=== PATIENT | male | born 1950 | race Caucasian/White ===

== ENCOUNTER 2018-12-09 12:34 | Emergency (ER) | payer OTHER ==
[~2018-12-09] VITALS: Ht 182.9 cm; Wt 70.3 kg
[2018-12-09] MEDS ORDERED: LOSA50 PO (13:30)
[2018-12-09] MEDS ORDERED: CYCL10 PO (15:01)
[2018-12-09] MEDS ORDERED: Ultram50 MG PO (15:01)
== END 2018-12-09 15:17 | disposition home or self-care (01) ==
LOC: ER 12:34
DX: T14.90XA Injury, unspecified, initial encounter (principal); J44.9 Chronic obstructive pulmonary disease, unspecified; Z88.5 Allergy status to narcotic agent; Z87.891 Personal history of nicotine dependence; V49.40XA Driver injured in collision with unspecified motor vehicles in traffic accident, initial encounter
CPT/HCPCS: 72040; 72070; 72100; 99283-25

== ENCOUNTER 2018-12-18 09:36 | Emergency (ER) | payer OTHER ==
[~2018-12-18] VITALS: Ht 182.9 cm; Wt 70.3 kg
[~2018-12-18 09:36] MED LIST: CYCL10 PO; LOSA50 PO; Ultram50 MG PO
[2018-12-18] MEDS ORDERED: IBUP600 PO (11:21)
[2018-12-18] MEDS ORDERED: TRAM50 PO (11:21)
[2018-12-18] MEDS ORDERED: CYCL10 PO (11:21)
== END 2018-12-18 11:36 | disposition home or self-care (01) ==
LOC: ER 09:36
DX: M62.830 Muscle spasm of back (principal); M62.838 Other muscle spasm; Z88.2 Allergy status to sulfonamides; Z87.891 Personal history of nicotine dependence; S32.009D Unspecified fracture of unspecified lumbar vertebra, subsequent encounter for fracture with routine healing; V49.9XXD Car occupant (driver) (passenger) injured in unspecified traffic accident, subsequent encounter
CPT/HCPCS: 99283

== ENCOUNTER 2019-11-17 05:48 | Inpatient (IN) | payer OTHER, MEDICARE ==
[~2019-11-17] VITALS: Ht 182.9 cm; Wt 75.1 kg
[~2019-11-17 05:48] MED LIST changes: +IBUP600 PO; +TRAM50 PO
[2019-11-17 06:25] LABS: BASOPHILS ABSOLUTE AUTO 0.04 K/mm3 (0.00-0.23); BASOPHILS PERCENT AUTO 0 % (0-2); EOSINOPHILS ABSOLUTE AUTO 0.29 K/mm3 (0.00-0.68); EOSINOPHILS PERCENT AUTO 3 % (0-6); Hematocrit 44.7 % (37.0-53.0); Hemoglobin 14.3 g/dL (13.5-17.5); IMMATURE GRAN ABSOLUTE AUTO 0.03 K/mm3 (0.00-0.10); IMMATURE GRAN PERCENT AUTO 0 % (0-1); LYMPHOCYTES ABSOLUTE AUTO 1.52 K/mm3 (0.84-5.20); LYMPHOCYTES PERCENT AUTO 15 % (21-46); MONOCYTES ABSOLUTE AUTO 0.87 K/mm3 (0.16-1.47); MONOCYTES PERCENT AUTO 9 % (4-13); Mean Corpuscular HGB 29.7 pg (26.0-34.0); Mean Corpuscular Volume 93 fL (80-100); Mean Platelet Volume 9.5 fL (9.1-12.4); NEUTROPHILS ABSOLUTE AUTO 7.47 K/mm3 (1.96-9.15); NEUTROPHILS PERCENT AUTO 73 % (41-73); Platelet Count 139 K/mm3 (150-400); RDW Coefficient Variation 13.7 % (11.7-14.2); Red Blood Cell Count 4.81 M/mm3 (4.30-5.90); White Blood Cell Count 10.22 K/mm3 (4.00-11.30)
[2019-11-17 06:46] LABS: Alanine Aminotransfer (ALT/SGP 45 U/L (12-78); Albumin, Blood 3.7 g/dL (3.4-5.0); Albumin/Globulin Ratio 1.1 (0.8-1.8); Alk Phos 110 U/L (50-136); Anion Gap 9 mmol/L (6-16); Aspartate Aminotrans (AST/SGOT 139 U/L (12-37); Bilirubin, Total 0.6 mg/dL (0.1-1.0); Blood Urea Nitrogen 19 mg/dL (8-24); CO2, Blood 21 mmol/L (21-32); Calcium, Blood 8.9 mg/dL (8.5-10.1); Chloride, Blood 111 mmol/L (98-108); Creatinine, Blood 1.12 mg/dL (0.60-1.20); Globulin, Blood 3.3 g/dL (2.2-4.0); Glomerular Filtration Rate >60 (60-); Glucose, Blood 126 mg/dL (70-99); Potassium, Blood 4.1 mmol/L (3.5-5.5); Sodium, Blood 141 mmol/L (136-145)
[2019-11-17 07:13] LABS: International Normalized Ratio 1.03; Prothrombin Time Results 10.9 Sec (9.7-11.5)
--- NOTE | 2019-11-17 11:39 | NUR ---
Echocardiogram completed.
--- NOTE | 2019-11-17 14:07 | NUR ---
SITE TO RIGHT SHOULDER AND RIGHT JAW AREA (WHERE CANCER WAS REMOVED) CLEANED WITH SKINTEGRITY AND DRESSED WITH PLAIN TEGADERM.
[2019-11-17] MEDS ORDERED: ALBU90OI INH (14:09)
[2019-11-17] MEDS ORDERED: Refresh Plus1 EACH BOTHEYES (14:10)
[2019-11-17] MEDS ORDERED: FINA5 PO (14:11)
[2019-11-17] MEDS ORDERED: LOSARTAN POTAS100 MG PO (14:12)
[2019-11-17] MEDS ORDERED: PRAHYD1AE PR (14:12)
[2019-11-17] MEDS ORDERED: OMEPRAZOLE20 MG PO (14:13)
[2019-11-17] MEDS ORDERED: TAMS.4ER PO (14:13)
[2019-11-17] MEDS ORDERED: ASMANEX HFA13 GM INH (14:13)
[2019-11-17] MEDS ORDERED: STRIVERDI RESPIM4 GM INH (14:13)
--- NOTE | 2019-11-17 19:08 | NUR ---
REPORT TO SONY, RN TO ASSUME CARE
--- NOTE | 2019-11-17 19:09 | NUR ---
ARRIVAL TO ICU/SUMMARY PT ARRIVED TO ICU THIS MORNING POST CATHETERIZATION. TR BAND TO RIGHT RADIAL SITE. PT ALERT, ORIENTED. BP SLIGHTLY LOW. PT REPORTS SLIGHT DIZZINESS. HR NORMAL SINUS. PT AFEBRILE. 02 SAT'S 90'S ON ROOM AIR. PT DENIES CHEST PAIN. THROUGHOUT SHIFT, PT STATES DIZZINESS HAS RESOLVED. BP IMPROVED. PT ATE BOTH LUNCH AND DINNER INDEPEDENTLY. CALLING APPROPRIATELY FOR NEEDS. PT'S DAUGHTER AT BEDSIDE AND INVOLVED IN CARE. PT AND DAUGHTER EDUCATED EXTENSIVELY ON CARDIAC DIET, STENT PLACEMENT AND RADIAL ACCESS SITE PRECAUTIONS. PT AND FAMILY INVOLVED AND ASKING LOTS OF QUESTIONS. THIS EVENING PT REPORTING 1/10 BACK PAIN THAT HE REPORTS FEELS LIKE INDIGESTION. DISCUSSED ON NURSE ROUNDING WITH OFFGOING NURSE, PATIENT AND PT'S DAUGHTER. PLAN TO CONTINUE TO MONITOR. PT AGREES TO CALL IF PAIN WORSENS OR CHANGES.
--- NOTE | 2019-11-17 22:35 | NUR ---
ASSUME CARE PT ALERT AND ORIENTED. FOLLOWS COMMANDS, USES URINAL IN BED. PT COMPLAINS OF INDIGESTION FEELING SIMILAR TO THE FEELING HE HAD WHEN ADMITTED. PAIN 12/10. SATS ABOVE 92% ON RA. LUNGS DIMINISHED THROUGHOUT. AFEBRILE. TEGADERM ON BACK AND NECK INTACT. RT BAND SITE DRY, COVERED WITH TEGADERM. NO HEMATOMA OR OOZING NOTED. VSS. WILL CONTINUE TO MONITOR.
[2019-11-18 03:52] LABS: BASOPHILS ABSOLUTE AUTO 0.04 K/mm3 (0.00-0.23); BASOPHILS PERCENT AUTO 0 % (0-2); EOSINOPHILS ABSOLUTE AUTO 0.25 K/mm3 (0.00-0.68); EOSINOPHILS PERCENT AUTO 3 % (0-6); Hematocrit 38.5 % (37.0-53.0); Hemoglobin 12.4 g/dL (13.5-17.5); IMMATURE GRAN ABSOLUTE AUTO 0.04 K/mm3 (0.00-0.10); IMMATURE GRAN PERCENT AUTO 0 % (0-1); LYMPHOCYTES ABSOLUTE AUTO 1.42 K/mm3 (0.84-5.20); LYMPHOCYTES PERCENT AUTO 15 % (21-46); MONOCYTES ABSOLUTE AUTO 0.96 K/mm3 (0.16-1.47); MONOCYTES PERCENT AUTO 10 % (4-13); Mean Corpuscular HGB 29.6 pg (26.0-34.0); Mean Corpuscular HGB Conc 32.2 g/dL (31.5-36.5); Mean Corpuscular Volume 92 fL (80-100); Mean Platelet Volume 9.7 fL (9.1-12.4); NEUTROPHILS ABSOLUTE AUTO 6.52 K/mm3 (1.96-9.15); NEUTROPHILS PERCENT AUTO 71 % (41-73); Platelet Count 111 K/mm3 (150-400); RDW Coefficient Variation 13.8 % (11.7-14.2); RDW Standard Deviation 46.8 fL (35.1-46.3); Red Blood Cell Count 4.19 M/mm3 (4.30-5.90); White Blood Cell Count 9.23 K/mm3 (4.00-11.30)
[2019-11-18 04:17] LABS: Alanine Aminotransfer (ALT/SGP 34 U/L (12-78); Alk Phos 85 U/L (50-136); Anion Gap 7 mmol/L (6-16); Aspartate Aminotrans (AST/SGOT 79 U/L (12-37); Bilirubin, Total 0.5 mg/dL (0.1-1.0); Blood Urea Nitrogen 19 mg/dL (8-24); Bun/Creatinine Ratio 19.6 (12.0-20.0); CO2, Blood 21 mmol/L (21-32); Calcium, Blood 8.1 mg/dL (8.5-10.1); Chloride, Blood 114 mmol/L (98-108); Creatinine, Blood 0.97 mg/dL (0.60-1.20); Glomerular Filtration Rate >60 (60-); Glucose, Blood 95 mg/dL (70-99); Sodium, Blood 142 mmol/L (136-145)
--- NOTE | 2019-11-18 06:16 | NUR ---
SHIFT SUMMARY PT ALERT, SLEPT A LITTLE THROUGHOUT NIGHT. SATS ABOVE 92% ON RA. PT COMPLAINED OF 2/10 CHEST PAIN OVERNIGHT AND SOME SOB. ALBUTEROL TREATMENT AND INHALER GIVEN. PT MORE COMFORTABLE AFTER. ADEQUATE URINE OUTPUT. NO OTHER ISSUES. WILL CONTINUE TO MONITOR UNTIL REPORT GIVEN TO DAY SHIFT RN.
--- NOTE | 2019-11-18 11:10 | NUR ---
pT COMPLAINING OF A HEADACHE. NOTHING AVAILABLE. DR. BUCKLEY NOTIFIED AND RECEIVED ORDER FOR TYLENOL, SEE ORDERS.
--- NOTE | 2019-11-18 13:29 | NUR ---
REASSESSMENT: PT HAS NOT HAD ANY CHEST PAIN THIS MORNING. R TR BAND IS C/D/I, SOFT, NO HEMATOMA. LUNGS REMAIN CLEAR, ON RA. SR WITH OCC TO FQ PVCS, SOMETIMES RUNS OF BIGEMINY. PT DENIES ANY SYMPTOMS WITH BIGEMINY. BP STABLE. PT HAS A HEADACHE WHICH IMPROVED WITH TYLENOL BUT HE SAYS THE TYLENOL UPSET HIS STOMACH. PT REQUESTING A HAMBURGER AFTER HE DIDN'T EAT ANY BREAKFAST AND ONLY ATE THE POTATOES FROM HIS LUNCH. FOOD REQUEST PLACED TO SEE IF IT WILL HELP HIS UPSET STOMACH. PLAN IS FOR PT TO DC THIS AFTERNOON. WAITING FOR DC ORDERS.
[2019-11-18] MEDS ORDERED: ASPI81CH PO (14:19)
[2019-11-18] MEDS ORDERED: ATOR40TA PO (14:20)
[2019-11-18] MEDS ORDERED: TICA90TA PO (14:21)
[2019-11-18] MEDS ORDERED: NITR.4SL SL (14:21)
[2019-11-18] MEDS ORDERED: METO50ER PO (14:21)
--- NOTE | 2019-11-18 15:52 | NUR ---
DISCHARGE: PT DISCHARGED AT 1545 VIA WC WITH RN. PT GIVEN DISCHARGE INSTRUCTIONS REGARDING TR BAND SITE CARE, ACTIVITY, DIET, MEDICATIONS AND FOLLOW UP APPTS. DISCHARGE MEDS SENT TO [place] AND [facility] SCRIPT SENT TO [facility] WELL PER DR. BUCKLEY REQUEST SO PT WILL BE ABLE TO GET [facility] BECAUSE OF THEIR FORMULARY. PT EDUCATED ON THIS AND STATED HE WOULD GET THE [facility] FROM [facility]. ALL QUESTIONS WERE ANSWERED. PT'S SMILEY PICKED HIM UP. ALL BELONGINGS SENT HOME WITH PT.
== END 2019-11-18 15:50 | disposition home or self-care (01) | DRG 247 ==
LOC: ER 05:48 → ICUW 07:14
PROVIDERS: Emergency Medicine; ADMIT Internal Medicine Interventional Cardiology
PROC: 027034Z Dilation of Coronary Artery, One Artery with Drug-eluting Intraluminal Device, Percutaneous Approach (ICD-10-PCS; principal; 2019-11-17)
PROC: 4A023N7 Measurement of Cardiac Sampling and Pressure, Left Heart, Percutaneous Approach (ICD-10-PCS; 2019-11-17)
PROC: B2111ZZ Fluoroscopy of Multiple Coronary Arteries using Low Osmolar Contrast (ICD-10-PCS; 2019-11-17)
PROC: B2151ZZ Fluoroscopy of Left Heart using Low Osmolar Contrast (ICD-10-PCS; 2019-11-17)
PROC: B240ZZ3 Ultrasonography of Single Coronary Artery, Intravascular (ICD-10-PCS; 2019-11-17)
DX: I24.0 Acute coronary thrombosis not resulting in myocardial infarction (principal); J44.9 Chronic obstructive pulmonary disease, unspecified; Z87.891 Personal history of nicotine dependence; I95.9 Hypotension, unspecified; I10 Essential (primary) hypertension
CPT/HCPCS: 36415; 71045; 76937; 80053; 83690; 84484; 85025; 85347; 85610; 85730; 92978; 93005; 93010; 93306; 93458; 94640; 94760; 96374; 96375; 99152; 99153; 99285-25; A9270; C1725; C1753; C1769; C1874; C1887; C1894; C9600; J0461; J1200; J1644; J2250; J2270; J2405; J3010; J7030; Q9967

== ENCOUNTER 2019-11-20 22:26 | Emergency (ER) | payer OTHER ==
[~2019-11-20] VITALS: Ht 182.9 cm; Wt 72.6 kg
[~2019-11-20 22:26] MED LIST changes: +ALBU90OI INH; +ASMANEX HFA13 GM INH; +ASPI81CH PO; +ATOR40TA PO; +FINA5 PO; +LOSARTAN POTAS100 MG PO; +METO50ER PO; +NITR.4SL SL; +OMEPRAZOLE20 MG PO; +PRAHYD1AE PR; +Refresh Plus1 EACH BOTHEYES; +STRIVERDI RESPIM4 GM INH; +TAMS.4ER PO; +TICA90TA PO
[2019-11-20 23:12] LABS: BASOPHILS ABSOLUTE AUTO 0.06 K/mm3 (0.00-0.23); BASOPHILS PERCENT AUTO 1 % (0-2); EOSINOPHILS ABSOLUTE AUTO 0.37 K/mm3 (0.00-0.68); EOSINOPHILS PERCENT AUTO 4 % (0-6); Hematocrit 43.4 % (37.0-53.0); Hemoglobin 14.2 g/dL (13.5-17.5); IMMATURE GRAN ABSOLUTE AUTO 0.04 K/mm3 (0.00-0.10); IMMATURE GRAN PERCENT AUTO 0 % (0-1); LYMPHOCYTES PERCENT AUTO 16 % (21-46); MONOCYTES ABSOLUTE AUTO 1.07 K/mm3 (0.16-1.47); MONOCYTES PERCENT AUTO 11 % (4-13); Mean Corpuscular HGB Conc 32.7 g/dL (31.5-36.5); Mean Corpuscular Volume 92 fL (80-100); Mean Platelet Volume 9.5 fL (9.1-12.4); NEUTROPHILS ABSOLUTE AUTO 6.66 K/mm3 (1.96-9.15); NEUTROPHILS PERCENT AUTO 69 % (41-73); Platelet Count 161 K/mm3 (150-400); RDW Coefficient Variation 13.2 % (11.7-14.2); RDW Standard Deviation 45.1 fL (35.1-46.3); Red Blood Cell Count 4.74 M/mm3 (4.30-5.90)
[2019-11-20 23:29] LABS: Alanine Aminotransfer (ALT/SGP 26 U/L (12-78); Albumin, Blood 3.5 g/dL (3.4-5.0); Alk Phos 110 U/L (50-136); Anion Gap 11 mmol/L (6-16); Aspartate Aminotrans (AST/SGOT 26 U/L (12-37); Bilirubin, Total 0.8 mg/dL (0.1-1.0); Blood Urea Nitrogen 22 mg/dL (8-24); CO2, Blood 19 mmol/L (21-32); Calcium, Blood 8.9 mg/dL (8.5-10.1); Chloride, Blood 112 mmol/L (98-108); Creatinine, Blood 1.05 mg/dL (0.60-1.20); Globulin, Blood 3.5 g/dL (2.2-4.0); Glomerular Filtration Rate >60 (60-); Glucose, Blood 100 mg/dL (70-99); Potassium, Blood 3.9 mmol/L (3.5-5.5); Sodium, Blood 142 mmol/L (136-145)
== END 2019-11-21 01:21 | disposition left against medical advice (07) ==
LOC: ER 22:26
PROVIDERS: Emergency Medicine
DX: R07.9 Chest pain, unspecified (principal); I25.2 Old myocardial infarction; I10 Essential (primary) hypertension; J44.9 Chronic obstructive pulmonary disease, unspecified; Z88.5 Allergy status to narcotic agent; Z95.5 Presence of coronary angioplasty implant and graft; Z79.899 Other long term (current) drug therapy; Z98.2 Presence of cerebrospinal fluid drainage device; Z79.51 Long term (current) use of inhaled steroids; Z87.891 Personal history of nicotine dependence
CPT/HCPCS: 36415; 71046; 80053; 83880; 84484; 85025; 93005; 93010; 99285-25

== ENCOUNTER 2019-12-01 18:55 | Emergency (ER) | payer OTHER ==
[~2019-12-01] VITALS: Ht 182.9 cm; Wt 72.6 kg
== END 2019-12-01 21:35 | disposition home or self-care (01) ==
LOC: ER 18:55
DX: M79.89 Other specified soft tissue disorders (principal); J44.9 Chronic obstructive pulmonary disease, unspecified; I25.2 Old myocardial infarction; Z88.5 Allergy status to narcotic agent; Z79.899 Other long term (current) drug therapy; Z79.82 Long term (current) use of aspirin; Z79.51 Long term (current) use of inhaled steroids; Z95.5 Presence of coronary angioplasty implant and graft; Z87.891 Personal history of nicotine dependence
CPT/HCPCS: 93971; 99283-25

== ENCOUNTER 2020-05-15 06:34 | Day surgery (SDC) | payer OTHER ==
[~2020-05-15] VITALS: Ht 182.9 cm; Wt 68.0 kg
[2020-05-15] MEDS ORDERED: FURO20 PO (06:58)
[2020-05-15] MEDS ORDERED: CLOP75 PO (09:26)
--- NOTE | 2020-05-15 11:00 | NUR ---
RIGHT TR BAND DEFLATED, ARM BOARD REMAINS ON FOR SUPPORT. VSS. CALL LIGHT WITHIN REACH. NADN.
--- NOTE | 2020-05-15 11:15 | NUR ---
TR BAND REMOVED FROM RIGHT WRIST, RED CLOTH DOT DRESSING APPLIED. SITE SOFT NON TENDER WITH NO ACTIVE BLEEDING, OOZING, OR PAIN. PT GETS DRESSED WITH NO NEEDED ASSISTANCE. NEW PRESCRIPTION FOR [facility] CALLED TO [facility] WITH FAXED COPY OF THE ORDER. DAUGHTER CALLED FOR RIDE HOME.
--- NOTE | 2020-05-15 12:06 | NUR ---
IV REMOVED FROM LAC WITH CATH INTACT, PRESSURE DRESSING APPLIED. PT VERBALIZED UNDERSTANDING OF D/C INSTRUCTIONS. PAPERWORK PROVIDED TO TAKE HOME, ENCOURAGED TO FOLLOW UP WITH PROVIDER SCHEDULED. NO ACUTE DISTRESS NOTED AT TIME OF DISPO. TAKEN OUT TO PRIVATE VEHICLE VIA W/C. VSS. RIGHT WRIST REMAINS SOFT NON TENDER WITH NO ACTIVE BLEEDING, OOZING, OR PAIN NOTED.
== END 2020-05-15 12:00 | disposition home or self-care (01) ==
LOC: MHTC 06:34
PROC: B201YZZ Plain Radiography of Multiple Coronary Arteries using Other Contrast (ICD-10-PCS; principal; 2020-05-15)
PROC: 4A023N7 Measurement of Cardiac Sampling and Pressure, Left Heart, Percutaneous Approach (ICD-10-PCS; principal; 2020-05-15)
DX: I25.118 Atherosclerotic heart disease of native coronary artery with other forms of angina pectoris (principal); I10 Essential (primary) hypertension; K21.9 Gastro-esophageal reflux disease without esophagitis; J44.9 Chronic obstructive pulmonary disease, unspecified; Z79.82 Long term (current) use of aspirin; Z79.899 Other long term (current) drug therapy; Z88.5 Allergy status to narcotic agent
CPT/HCPCS: 76937; 85347; 93458; 93571; 93572; 99152; 99153; C1769; C1887; C1894; J1644; J2250; J3010; J7030; Q9967

== ENCOUNTER 2020-07-19 09:43 | Emergency (ER) | payer OTHER ==
[~2020-07-19] VITALS: Ht 182.9 cm; Wt 69.7 kg
[~2020-07-19 09:43] MED LIST changes: +CLOP75 PO; +FURO20 PO
[2020-07-19] MEDS ORDERED: ARTIFICIAL SALIVA PO (10:00)
[2020-07-19] MEDS ORDERED: VITAMIN D31000 UNI1 PO (10:03)
[2020-07-19] MEDS ORDERED: Isosorbide Mono30 MG PO (10:04)
[2020-07-19 10:37] LABS: BASOPHILS ABSOLUTE AUTO 0.05 K/mm3 (0.00-0.23); BASOPHILS PERCENT AUTO 0 % (0-2); EOSINOPHILS PERCENT AUTO 4 % (0-6); Hematocrit 39.9 % (37.0-53.0); Hemoglobin 12.8 g/dL (13.5-17.5); IMMATURE GRAN ABSOLUTE AUTO 0.05 K/mm3 (0.00-0.10); IMMATURE GRAN PERCENT AUTO 0 % (0-1); LYMPHOCYTES PERCENT AUTO 8 % (21-46); MONOCYTES ABSOLUTE AUTO 1.09 K/mm3 (0.16-1.47); MONOCYTES PERCENT AUTO 9 % (4-13); Mean Corpuscular HGB 30.9 pg (26.0-34.0); Mean Corpuscular HGB Conc 32.1 g/dL (31.5-36.5); Mean Corpuscular Volume 96 fL (80-100); Mean Platelet Volume 9.1 fL (9.1-12.4); NEUTROPHILS PERCENT AUTO 77 % (41-73); Platelet Count 130 K/mm3 (150-400); RDW Coefficient Variation 13.8 % (11.7-14.2); RDW Standard Deviation 49.2 fL (35.1-46.3); Red Blood Cell Count 4.14 M/mm3 (4.30-5.90); White Blood Cell Count 11.89 K/mm3 (4.00-11.30)
[2020-07-19 10:59] LABS: Alanine Aminotransfer (ALT/SGP 30 U/L (12-78); Albumin, Blood 3.2 g/dL (3.4-5.0); Albumin/Globulin Ratio 0.9 (0.8-1.8); Alk Phos 164 U/L (50-136); Anion Gap 4 mmol/L (6-16); Aspartate Aminotrans (AST/SGOT 19 U/L (12-37); Bilirubin, Total 0.5 mg/dL (0.1-1.0); Blood Urea Nitrogen 20 mg/dL (8-24); Bun/Creatinine Ratio 17.4 (12.0-20.0); CO2, Blood 28 mmol/L (21-32); Calcium, Blood 8.6 mg/dL (8.5-10.1); Chloride, Blood 108 mmol/L (98-108); Creatinine, Blood 1.15 mg/dL (0.60-1.20); Globulin, Blood 3.6 g/dL (2.2-4.0); Glomerular Filtration Rate >60 (60-); Glucose, Blood 102 mg/dL (70-99); Potassium, Blood 3.8 mmol/L (3.5-5.5); Sodium, Blood 140 mmol/L (136-145); Total Protein, Blood 6.8 g/dL (6.4-8.2); Troponin I <0.015 ng/mL (0.000-0.040)
== END 2020-07-19 12:48 | disposition home or self-care (01) ==
LOC: ER 09:43
PROVIDERS: Emergency Medicine
DX: R56.9 Unspecified convulsions (principal); R55 Syncope and collapse; I25.2 Old myocardial infarction; J44.9 Chronic obstructive pulmonary disease, unspecified; I10 Essential (primary) hypertension; K21.9 Gastro-esophageal reflux disease without esophagitis; I25.10 Atherosclerotic heart disease of native coronary artery without angina pectoris; N40.0 Benign prostatic hyperplasia without lower urinary tract symptoms; Z79.02 Long term (current) use of antithrombotics/antiplatelets; Z88.5 Allergy status to narcotic agent; Z79.82 Long term (current) use of aspirin; Z79.899 Other long term (current) drug therapy; Z87.891 Personal history of nicotine dependence
CPT/HCPCS: 70450; 80053; 84484; 85025; 93005; 93010; 99284-25

== ENCOUNTER 2021-05-04 10:21 | Emergency (ER) | payer OTHER ==
[~2021-05-04] VITALS: Ht 182.9 cm; Wt 77.1 kg
[~2021-05-04 10:21] MED LIST changes: +ARTIFICIAL SALIVA PO; +Isosorbide Mono30 MG PO; +VITAMIN D31000 UNI1 PO
[2021-05-04 11:35] LABS: BASOPHILS ABSOLUTE AUTO 0.03 K/mm3 (0.00-0.23); BASOPHILS PERCENT AUTO 0 % (0-2); EOSINOPHILS ABSOLUTE AUTO 0.21 K/mm3 (0.00-0.68); EOSINOPHILS PERCENT AUTO 3 % (0-6); Hematocrit 45.4 % (37.0-53.0); Hemoglobin 14.7 g/dL (13.5-17.5); IMMATURE GRAN ABSOLUTE AUTO 0.02 K/mm3 (0.00-0.10); IMMATURE GRAN PERCENT AUTO 0 % (0-1); LYMPHOCYTES ABSOLUTE AUTO 1.65 K/mm3 (0.84-5.20); LYMPHOCYTES PERCENT AUTO 22 % (21-46); MONOCYTES ABSOLUTE AUTO 0.82 K/mm3 (0.16-1.47); MONOCYTES PERCENT AUTO 11 % (4-13); Mean Corpuscular HGB 30.1 pg (26.0-34.0); Mean Corpuscular HGB Conc 32.4 g/dL (31.5-36.5); Mean Corpuscular Volume 93 fL (80-100); Mean Platelet Volume 9.6 fL (9.1-12.4); NEUTROPHILS ABSOLUTE AUTO 4.65 K/mm3 (1.96-9.15); NEUTROPHILS PERCENT AUTO 63 % (41-73); Platelet Count 106 K/mm3 (150-400); RDW Coefficient Variation 13.3 % (11.7-14.2); RDW Standard Deviation 45.1 fL (35.1-46.3); Red Blood Cell Count 4.88 M/mm3 (4.30-5.90); White Blood Cell Count 7.38 K/mm3 (4.00-11.30)
[2021-05-04 11:58] LABS: Alanine Aminotransfer (ALT/SGP 30 U/L (12-78); Albumin, Blood 3.5 g/dL (3.4-5.0); Alk Phos 164 U/L (50-136); Anion Gap 7 mmol/L (6-16); Aspartate Aminotrans (AST/SGOT 26 U/L (12-37); Bilirubin, Total 0.6 mg/dL (0.1-1.0); Blood Urea Nitrogen 17 mg/dL (8-24); Bun/Creatinine Ratio 17.5 (12.0-20.0); CO2, Blood 22 mmol/L (21-32); Calcium, Blood 8.8 mg/dL (8.5-10.1); Chloride, Blood 110 mmol/L (98-108); Creatinine, Blood 0.97 mg/dL (0.60-1.20); Globulin, Blood 3.4 g/dL (2.2-4.0); Glomerular Filtration Rate >60 (60-); Glucose, Blood 106 mg/dL (70-99); Potassium, Blood 3.6 mmol/L (3.5-5.5); Sodium, Blood 139 mmol/L (136-145); Total Protein, Blood 6.9 g/dL (6.4-8.2); Troponin I <0.015 ng/mL (0.000-0.040)
[2021-05-04] MEDS ORDERED: Prednisone20 MG PO (12:32)
== END 2021-05-04 13:07 | disposition home or self-care (01) ==
LOC: ER 10:21
PROVIDERS: Emergency Medicine
DX: J44.1 Chronic obstructive pulmonary disease with (acute) exacerbation (principal); I25.2 Old myocardial infarction; Z88.5 Allergy status to narcotic agent; Z79.899 Other long term (current) drug therapy; Z79.82 Long term (current) use of aspirin; Z87.891 Personal history of nicotine dependence
CPT/HCPCS: 36415; 71046; 80053; 84484; 85025; 93005; 93010; 94640; 99285-25

== ENCOUNTER 2021-12-14 19:16 | Inpatient (IN) | payer OTHER ==
[~2021-12-14] VITALS: Ht 182.9 cm; Wt 77.1 kg
[~2021-12-14 19:16] MED LIST changes: +CARBOXYMETHYLCE15 ML BOTHEYES; +Prednisone20 MG PO; -Refresh Plus1 EACH BOTHEYES
[2021-12-14 19:48] LABS: Hematocrit 42.7 % (37.0-53.0); Hemoglobin 14.3 g/dL (13.5-17.5); Mean Corpuscular HGB Conc 33.5 g/dL (31.5-36.5); Mean Corpuscular Volume 92 fL (80-100); Mean Platelet Volume 9.5 fL (9.1-12.4); Platelet Count 103 K/mm3 (150-400); RDW Coefficient Variation 13.9 % (11.7-14.2); RDW Standard Deviation 47.4 fL (35.1-46.3); Red Blood Cell Count 4.62 M/mm3 (4.30-5.90); White Blood Cell Count 11.09 K/mm3 (4.00-11.30)
[2021-12-14 20:07] LABS: Albumin, Blood 2.9 g/dL (3.4-5.0); Albumin/Globulin Ratio 0.8 (0.8-1.8); Bilirubin, Total 1.2 mg/dL (0.1-1.0); Bun/Creatinine Ratio 22.4 (12.0-20.0); Calcium, Blood 8.9 mg/dL (8.5-10.1); Creatinine, Blood 1.25 mg/dL (0.60-1.20); Globulin, Blood 3.8 g/dL (2.2-4.0); Potassium, Blood 3.9 mmol/L (3.5-5.5); Total Protein, Blood 6.7 g/dL (6.4-8.2)
[2021-12-14 20:22] LABS: BAND PERCENT MAN 39 % (0-8); BASOPHILS ABSOLUTE MAN 0.11 K/mm3 (0.00-0.23); BASOPHILS PERCENT MAN 1 % (0-2); EOSINOPHILS PERCENT MAN 0 % (0-6); LYMPHOCYTES ABSOLUTE MAN 0.22 K/mm3 (0.84-5.20); LYMPHOCYTES PERCENT MAN 2 % (21-46); METAMYELOCYTE ABSOLUTE MAN 0.33 K/mm3 (0.00-0.00); METAMYELOCYTE PERCENT MAN 3 % (0-0); MONOCYTES ABSOLUTE MAN 0.55 K/mm3 (0.16-1.47); MONOCYTES PERCENT MAN 5 % (4-13); NEUTROPHILS ABSOLUTE MAN 9.87 K/mm3 (1.96-9.15); SEG NEUTROPHILS PERCENT MAN 50 % (41-73); TOTAL CELLS COUNTED 100
[2021-12-14 21:24] LABS: Troponin I 0.02 ng/mL (0.000-0.040)
[2021-12-14 22:23] LABS: Influenza A, PCR NEGATIVE (NEGATIVE); Influenza B, PCR NEGATIVE (NEGATIVE); Resp Syncytial Virus, PCR NEGATIVE (NEGATIVE); SARS-Cov-2 (COVID-19) PCR, MMC NEGATIVE (NEGATIVE)
[2021-12-15 01:26] LABS: Adenovirus Not Detected (NOT DETECT); Bordetella pertussis Not Detected (NOT DETECT); Chlamydophila pneumoniae Not Detected (NOT DETECT); Coronavirus 229E Not Detected (NOT DETECT); Coronavirus HKU1 Not Detected (NOT DETECT); Coronavirus NL63 Not Detected (NOT DETECT); Coronavirus OC43 Not Detected (NOT DETECT); Human Metapneumovirus Not Detected (NOT DETECT); Human Rhinovirus/Enterovirus Not Detected (NOT DETECT); Influenza A/2009-H1 Not Detected (NOT DETECT); Influenza A/H1 Not Detected (NOT DETECT); Influenza A/H3 Not Detected (NOT DETECT); Influenza B Not Detected (NOT DETECT); Mycoplasma pneumoniae Not Detected (NOT DETECT); Parainfluenza Virus 1 Not Detected (NOT DETECT); Parainfluenza Virus 2 Not Detected (NOT DETECT); Parainfluenza Virus 3 Not Detected (NOT DETECT); Parainfluenza Virus 4 Not Detected (NOT DETECT); Respiratory Syncytial Virus Not Detected (NOT DETECT); SARS-Cov-2 (COVID-19), BioFire Not Detected (NOT DETECT)
[2021-12-15 02:18] LABS: Hematocrit 42.9 % (37.0-53.0); Hemoglobin 14.4 g/dL (13.5-17.5); Mean Corpuscular HGB Conc 33.6 g/dL (31.5-36.5); Mean Corpuscular Volume 93 fL (80-100); Mean Platelet Volume 10.6 fL (9.1-12.4); Platelet Count 96 K/mm3 (150-400); RDW Coefficient Variation 13.7 % (11.7-14.2); RDW Standard Deviation 46.6 fL (35.1-46.3); Red Blood Cell Count 4.64 M/mm3 (4.30-5.90); White Blood Cell Count 5.89 K/mm3 (4.00-11.30)
[2021-12-15 02:37] LABS: Anion Gap 10 mmol/L (6-16); Blood Urea Nitrogen 29 mg/dL (8-24); Bun/Creatinine Ratio 28.2 (12.0-20.0); CO2, Blood 22 mmol/L (21-32); Calcium, Blood 8.4 mg/dL (8.5-10.1); Chloride, Blood 105 mmol/L (98-108); Creatinine, Blood 1.03 mg/dL (0.60-1.20); Glomerular Filtration Rate >60 (60-); Glucose, Blood 139 mg/dL (70-99); Potassium, Blood 3.8 mmol/L (3.5-5.5); Sodium, Blood 137 mmol/L (136-145)
--- NOTE | 2021-12-15 04:14 | NUR ---
ADMISSION: PT ARRIVED TO THE FLOOR EXTREMELY WEAK. HE WAS ABLE TO ANSWER MOST QUESTIONS, BUT CONTINUALLY FELL ASLEEP DURING ADMISSION. HE WAS ON 4L OF O2, BUT RT PUT HIM ON 6L AROUND 0400 SATTING AROUND 92%. PER TELE MONITOR HE WAS SR/92. HE WAS FEBRILE AT 100.0, GAVE 650 TYLENOL AND TEMP IS DOWN TO 99.6. PT DOES HAVE A HX OF RECURRING PNA. LACTIC ACID WAS ELEVATED, BUT DECREASED TO 1.7 ONCE ON THE FLOOR. PT's MED REC WAS NOT COMPLETE D/T HIS SLEEPINESS--WILL PASS THAT ALONG TO THE DAY NURSE. BED IS IN LOWEST POSITION AND CALL LIGHT IS WITHIN REACH. WE'LL CONTINUE TO MONITOR THE REMAINDER OF THE SHIFT.
[2021-12-15 04:49] LABS: BAND PERCENT MAN 28 % (0-8); BASOPHILS PERCENT MAN 0 % (0-2); EOSINOPHILS PERCENT MAN 0 % (0-6); LYMPHOCYTES ABSOLUTE MAN 0.35 K/mm3 (0.84-5.20); LYMPHOCYTES PERCENT MAN 6 % (21-46); METAMYELOCYTE ABSOLUTE MAN 0.05 K/mm3 (0.00-0.00); METAMYELOCYTE PERCENT MAN 1 % (0-0); MONOCYTES ABSOLUTE MAN 0.88 K/mm3 (0.16-1.47); MONOCYTES PERCENT MAN 15 % (4-13); MYELOCYTE ABSOLUTE MAN 0.05 K/mm3 (0.00-0.00); MYELOCYTE PERCENT MAN 1 % (0-0); NEUTROPHILS ABSOLUTE MAN 4.53 K/mm3 (1.96-9.15); SEG NEUTROPHILS PERCENT MAN 49 % (41-73); TOTAL CELLS COUNTED 100
--- NOTE | 2021-12-15 04:59 | NUR ---
SHIFT SUMMARY: PT HAS BEEN RESTING SINCE NURSE ASSUMED CARE. CURRENTLY PT IS ON 6L OF O2, THIS IS NOT HIS BASELINE. PT TOLERATED H20 WELL WITH NO C/O OF NAUSEA. TELE IS SR/92 VIA TELE MONITOR. DUE TO HIS GENERAL MALAISE THE BED ALARM IS SET. NO NEW CHANGES TO REPORT AT THIS TIME.
[2021-12-15] MEDS ORDERED: ALBU3IS INH (22:38)
[2021-12-15] MEDS ORDERED: CLOP75 PO (22:39)
[2021-12-15] MEDS ORDERED: SPIRIVA RESPIMAT4 G3 INH (22:42)
--- NOTE | 2021-12-16 04:04 | NUR ---
CUSTOMER SUPPORT SPECIALIST SUMMARY HAS BEEN RESTING QUIETLY WITH OCCASIONAL AWAKENINGS. QUIET IN SPEECH WHEN STAFF TALKING TO HIM. MED TELE SINUS TACH AT 100 WHEN VERIFIED WITH TELE MONITOR. ASYMPOMATIC OTHER THAN APPARENT FATIGUE. LUNGS DIMINISHED ON LEFT SIDE. SOME WHEEZE NOTED WELL. CALL LIGHT IN REACH
[2021-12-16 05:12] LABS: BASOPHILS ABSOLUTE AUTO 0.04 K/mm3 (0.00-0.23); BASOPHILS PERCENT AUTO 1 % (0-2); Hematocrit 40.9 % (37.0-53.0); Hemoglobin 13.7 g/dL (13.5-17.5); LYMPHOCYTES PERCENT AUTO 5 % (21-46); MONOCYTES ABSOLUTE AUTO 0.43 K/mm3 (0.16-1.47); MONOCYTES PERCENT AUTO 6 % (4-13); Mean Corpuscular HGB 30.4 pg (26.0-34.0); Mean Corpuscular HGB Conc 33.5 g/dL (31.5-36.5); Mean Corpuscular Volume 91 fL (80-100); Mean Platelet Volume 11.2 fL (9.1-12.4); Platelet Count 98 K/mm3 (150-400); RDW Coefficient Variation 13.6 % (11.7-14.2); RDW Standard Deviation 45.7 fL (35.1-46.3); White Blood Cell Count 7.36 K/mm3 (4.00-11.30)
[2021-12-16 05:20] LABS: EOSINOPHILS ABSOLUTE AUTO 0.04 K/mm3 (0.00-0.68); EOSINOPHILS PERCENT AUTO 1 % (0-6); IMMATURE GRAN ABSOLUTE AUTO 0.05 K/mm3 (0.00-0.10); IMMATURE GRAN PERCENT AUTO 1 % (0-1); NEUTROPHILS PERCENT AUTO 87 % (41-73)
[2021-12-16 05:53] LABS: BAND PERCENT MAN 2 % (0-8); BASOPHILS PERCENT MAN 0 % (0-2); EOSINOPHILS ABSOLUTE MAN 0.14 K/mm3 (0.00-0.68); EOSINOPHILS PERCENT MAN 2 % (0-6); LYMPHOCYTES ABSOLUTE MAN 0.51 K/mm3 (0.84-5.20); LYMPHOCYTES PERCENT MAN 7 % (21-46); MONOCYTES ABSOLUTE MAN 0.14 K/mm3 (0.16-1.47); MONOCYTES PERCENT MAN 2 % (4-13); NEUTROPHILS ABSOLUTE MAN 6.55 K/mm3 (1.96-9.15); SEG NEUTROPHILS PERCENT MAN 87 % (41-73); TOTAL CELLS COUNTED 100
[2021-12-16 06:06] LABS: Alanine Aminotransfer (ALT/SGP 24 U/L (12-78); Albumin, Blood 2.2 g/dL (3.4-5.0); Albumin/Globulin Ratio 0.8 (0.8-1.8); Alk Phos 77 U/L (50-136); Anion Gap 9 mmol/L (6-16); Aspartate Aminotrans (AST/SGOT 25 U/L (12-37); Bilirubin, Total 1.1 mg/dL (0.1-1.0); Blood Urea Nitrogen 27 mg/dL (8-24); CO2, Blood 25 mmol/L (21-32); Calcium, Blood 8.5 mg/dL (8.5-10.1); Chloride, Blood 103 mmol/L (98-108); Creatinine, Blood 1.04 mg/dL (0.60-1.20); Globulin, Blood 2.9 g/dL (2.2-4.0); Glomerular Filtration Rate >60 (60-); Glucose, Blood 116 mg/dL (70-99); Sodium, Blood 137 mmol/L (136-145); Total Protein, Blood 5.1 g/dL (6.4-8.2)
--- NOTE | 2021-12-16 14:38 | NUR ---
PT RETURNED FROM CT PT RETURNED FROM CT VIA WC @ THIS TIME, PT ABLE TO TRANSFER STAND, PIVOT SBA X1 W/ GAIT BELT STEADILY. PT ABLE TO BOOST SELF IN BED.
--- NOTE | 2021-12-16 14:57 | NUR ---
LAB RESULTS THIS RN CALLED DR. CHAMP ELLISONING THE POSITIVE BLOOD CULTURE PER LAB @ THIS TIME.
--- NOTE | 2021-12-16 17:03 | NUR ---
SHIFT SUMMARY PT A&O X4 & IN PLEASENT MOOD T/O SHIFT. PT HAD CT DURING SHIFT, ABLE TO STAND PIVOT TRANSFER W/ GB FROM BED TO W/ 1 ASSIST- WEAK GAIT. VISITOR @ BEDSIDE DURING VISITING HOURS, DAUGHTER ATTEMPTED TO COME UP A 2ND VISITOR AND WAS DENIED ACCESS DUE TO COVID RESTRICTIONS. DAUGHTER CALLED AND VERBALIZED THAT SHE WAS UPSET THAT SHE WAS NOT ALLOWED UP, EDUCATED ON COVID RESTRICTIONS AND STRICT VISITING HOURS/# OF GUESTS. PT COMMUNITATES W/ WHISPER. 6L O2 VIA ME. CONTACTED ABOUT LAB RESULTS- SEE NOTE. PT STARTED ON VANCO, AMBIEN, NS @ 100ML/HR X2BAGS, AND PRN ONDANSETRON. PT COUGHING UP SPUTUM. VSS. CALL LIGHT W/IN REACH. TELE IN PLACE. PT DENIES CP & PRESSURE. SOB @ BASELINE.
--- NOTE | 2021-12-16 21:54 | NUR ---
DAUGHTER "ZAINA" CALLED FOR AN UPDATE. PT VERBALIZED AGREEMENT TO DO SO. WAS INFORMED OF RESULTS OF CHEST CT - AND OF RECENT POSITIVE BLOOD CX. VERBALIZED SHE WAS PLANNING TO RETURN TO [facility] TOMORROW BUT WOULD CALL BACK AROUND 10 AM TO SPEAK WITH MD/STAFF RE PLAN OF ACTION.
--- NOTE | 2021-12-17 02:01 | NUR ---
ARMORED CAR GUARD REPORTED RUN OF BIGEMINAL BEATS WITH PVC'S AND RECENT PAC'S. PT REPORTS LEFT CHEST PAIN BUT REFUSES TO TAKE NITRO DUE TO NEGATIVE EFFECTS IN HIS PAST. BP 126/66, HR 50, O2 SATS 92% ON 6L/NC. RESPS 20. CALL PLACED TO MD MONTY ORDERS STAT TROP, AND 12 LEAD EKG. CHARGE NURSE NOTIFIED.
--- NOTE | 2021-12-17 03:03 | NUR ---
RECEIVED FENTANYL IV FOR CHEST PAIN. STATES FEELS MUCH BETTER. CALL LIGHT IN REACH
--- NOTE | 2021-12-17 05:38 | NUR ---
ASSISTANT PRODUCT MANAGER SUMMARY WAS RESTING QUIETLY UNTIL MID SHIFT, AT [facility] TIME Evgen REPORTED RUN OF BIGEMINY BEATS. UPON CHECKING PT, HE VOICED LEFT THADDEUS PAIN BUT REFUSED NITRO, NOTIFIED AND ORDERS OBTAINED FOR TROP LEVEL,12 LEAD EKG AND FENTANYL FOR PAIN. TROP RETURNED WNL. FENTANYL GIVEN AND PAIN WAS ALLEVIATED. NO FURTHER COMPLAINTS VOICED. PT RESTED QUIETLY AFTER THAT. AWAKE AT THIS TIME REQUESTING "ROZINA MIST" TO DRINK. DENIED ANY DIOSTRESS, AFFECT ATTENTIVE. IVF INFUSING. CALL LIGHT IN REACH.
--- NOTE | 2021-12-17 07:28 | NUR ---
assumed care of pt- BEDSIDE REPORT COMPLETED WITH NIGHT RN DEBBY. PER REPORT PT HAS HAD LOW GRADE FEVERS MANAGED WELL WITH TYLENOL. PT STATES HE FEELS TERRIBLE, C/O A SORE THROAT, RESP RATE ELEVATED TO 28. TELE READING NSR c/BIGEMINAL PVC'S AT 102. PT HAD C/O CP LAST NIGHT TROPONIN NEGATIVE EKG DONE. PT RECIEVED FENTANYL AND HAS HAD NO C/O CP SINCE THAT TIME. TEMP ON MORNING VITALS 101.1 WILL ADMINISTER TYLENOL, WILL CALL MD FOR BENZOCAINE LOZENGE PER PT REQUEST. PT ON 6L VIA MT, REDUCED ROOM TEMP AND REMOVED BLANKETS DOWN TO A SHEET AT THIS TIME WILL CTM.
[2021-12-17 08:29] LABS: BASOPHILS ABSOLUTE AUTO 0.05 K/mm3 (0.00-0.23); BASOPHILS PERCENT AUTO 1 % (0-2); EOSINOPHILS ABSOLUTE AUTO 0.18 K/mm3 (0.00-0.68); EOSINOPHILS PERCENT AUTO 2 % (0-6); Hematocrit 39.2 % (37.0-53.0); Hemoglobin 13.2 g/dL (13.5-17.5); IMMATURE GRAN ABSOLUTE AUTO 0.18 K/mm3 (0.00-0.10); IMMATURE GRAN PERCENT AUTO 2 % (0-1); LYMPHOCYTES ABSOLUTE AUTO 0.75 K/mm3 (0.84-5.20); LYMPHOCYTES PERCENT AUTO 8 % (21-46); MONOCYTES ABSOLUTE AUTO 0.65 K/mm3 (0.16-1.47); MONOCYTES PERCENT AUTO 7 % (4-13); Mean Corpuscular HGB 30.7 pg (26.0-34.0); Mean Corpuscular HGB Conc 33.7 g/dL (31.5-36.5); Mean Corpuscular Volume 91 fL (80-100); Mean Platelet Volume 10.2 fL (9.1-12.4); NEUTROPHILS ABSOLUTE AUTO 7.24 K/mm3 (1.96-9.15); NEUTROPHILS PERCENT AUTO 80 % (41-73); Platelet Count 113 K/mm3 (150-400); RDW Coefficient Variation 13.6 % (11.7-14.2); RDW Standard Deviation 45.8 fL (35.1-46.3); White Blood Cell Count 9.05 K/mm3 (4.00-11.30)
[2021-12-17 09:06] LABS: Anion Gap 9 mmol/L (6-16); Blood Urea Nitrogen 19 mg/dL (8-24); Bun/Creatinine Ratio 23.1 (12.0-20.0); CO2, Blood 23 mmol/L (21-32); Calcium, Blood 7.8 mg/dL (8.5-10.1); Chloride, Blood 106 mmol/L (98-108); Creatinine, Blood 0.82 mg/dL (0.60-1.20); Glomerular Filtration Rate >60 (60-); Glucose, Blood 125 mg/dL (70-99); Potassium, Blood 3.5 mmol/L (3.5-5.5); Sodium, Blood 138 mmol/L (136-145); Troponin I <0.015 ng/mL (0.000-0.040)
--- NOTE | 2021-12-17 12:09 | NUR ---
Echocardiogram completed.
--- NOTE | 2021-12-17 15:17 | NUR ---
TOOK OVER CARE AT 1100. PT IS AOX4 AND COOPERATIVE OF CARE. PT DENIES ANY PAIN AT THIS TIME. PT STATES HE JUST FEELS VERY SICK. PT CAN USE CALL LIGHT APPROPRIATELY. CALL LIGHT WITHIN REACH WILL CONTINUE TO MONITOR.
--- NOTE | 2021-12-17 17:35 | NUR ---
PT AOX4 AND COOPERATIVE OF CARE. PT IS MANTAINING O2 IN THE 90s ON 6L NC. PT RESTING IN BED AT THIS TIME. PT STATES HE JUST FEELS VERY SICK. PT USES URINAL AND USES CALL LIGHT APPROPRIATELY. NO DISTRESS NOTED AT THIS TIME. CALL LIGHT WITHIN REACH.
[2021-12-18 03:23] LABS: BASOPHILS ABSOLUTE AUTO 0.07 K/mm3 (0.00-0.23); BASOPHILS PERCENT AUTO 1 % (0-2); EOSINOPHILS ABSOLUTE AUTO 0.33 K/mm3 (0.00-0.68); EOSINOPHILS PERCENT AUTO 4 % (0-6); Hematocrit 36.1 % (37.0-53.0); Hemoglobin 12.1 g/dL (13.5-17.5); IMMATURE GRAN PERCENT AUTO 6 % (0-1); LYMPHOCYTES ABSOLUTE AUTO 0.64 K/mm3 (0.84-5.20); LYMPHOCYTES PERCENT AUTO 8 % (21-46); MONOCYTES ABSOLUTE AUTO 0.84 K/mm3 (0.16-1.47); MONOCYTES PERCENT AUTO 10 % (4-13); Mean Corpuscular HGB 30.6 pg (26.0-34.0); Mean Corpuscular HGB Conc 33.5 g/dL (31.5-36.5); Mean Corpuscular Volume 91 fL (80-100); NEUTROPHILS ABSOLUTE AUTO 6.02 K/mm3 (1.96-9.15); NEUTROPHILS PERCENT AUTO 72 % (41-73); Platelet Count 114 K/mm3 (150-400); RDW Coefficient Variation 13.7 % (11.7-14.2); RDW Standard Deviation 46.3 fL (35.1-46.3); Red Blood Cell Count 3.96 M/mm3 (4.30-5.90)
[2021-12-18 03:46] LABS: Albumin, Blood 1.5 g/dL (3.4-5.0); Anion Gap 5 mmol/L (6-16); Blood Urea Nitrogen 15 mg/dL (8-24); Bun/Creatinine Ratio 17.4 (12.0-20.0); CO2, Blood 28 mmol/L (21-32); Calcium, Blood 8.1 mg/dL (8.5-10.1); Chloride, Blood 107 mmol/L (98-108); Creatinine, Blood 0.86 mg/dL (0.60-1.20); Glomerular Filtration Rate >60 (60-); Glucose, Blood 113 mg/dL (70-99); Phosphorus, Blood 1.6 mg/dL (2.5-4.9); Potassium, Blood 3.5 mmol/L (3.5-5.5); Sodium, Blood 140 mmol/L (136-145); Vancomycin, Trough 11.1 ug/mL (5.0-10.0)
--- NOTE | 2021-12-18 05:34 | NUR ---
SHIFT SUMMARY PATIENT ALERT AND ORIENTED. PATIENT MEDICATED PER EMAR FOR COUGH AND CHEST PAIN RATED 7/10. TYLENOL AND FENTANYL EFFECTIVE IN LOWERING PAIN TO MANAGABLE LEVEL. PATIENT SHORT OF BREATH AND TACHYPNIC, CONTINUES TO COUGH UP BLOODY SPUTUM. BREATHING TREATMENTS ADMINISTERD PER RT. NO ACUTE EVENTS NOTED OVERNIGHT. CALL LIGHT WITHIN REACH. REPORT GIVEN TO ONCOMING RN.
--- NOTE | 2021-12-18 17:14 | NUR ---
SHIFT SUMMARY PT A&O X4 AND IN PLEASENT MOOD T/O SHIFT. PT GIRLFRIEND @ BEDSIDE DURING VISITING HOURS. TOLERATING PO INTAKE WELL, DENIES N/V. C/O HEADACHE MEDICATED PER EMAR. FLUTTER VALVE AND EDUCATION PROVIDED TO PT PER DR. ZULUAGA. VSS. CALL LIGHT WITH IN REACH. TELE MONITOR IN PLACE. PT APPEARS VERY TIRED AND WHISPERS TO COMMUNICATE.
[2021-12-19 03:39] LABS: Vancomycin, Trough 15.9 ug/mL (5.0-10.0)
--- NOTE | 2021-12-19 04:22 | NUR ---
FERRULER SUMMARY PATIENT HAD A FAIR SHIFT. HIS ASSESSMENT WAS DONE AND RECORDED. HE IS STILL COUGHING UP BLOODY PHLEGM, STATED THAT HE IS STILL VERY WEAK. NO OTHER COMPLAINTS LODGED. HE WAS REASSURED AND ASSITED NEED BE. HIS V/S ARE STABLE. WILL CONTINUE TO MONITOR HIM.
[2021-12-19 05:35] LABS: Albumin, Blood 1.7 g/dL (3.4-5.0); Anion Gap 8 mmol/L (6-16); Blood Urea Nitrogen 13 mg/dL (8-24); Bun/Creatinine Ratio 16.9 (12.0-20.0); CO2, Blood 25 mmol/L (21-32); Calcium, Blood 8.3 mg/dL (8.5-10.1); Chloride, Blood 105 mmol/L (98-108); Creatinine, Blood 0.77 mg/dL (0.60-1.20); Glomerular Filtration Rate >60 (60-); Glucose, Blood 135 mg/dL (70-99); Phosphorus, Blood 2.4 mg/dL (2.5-4.9); Potassium, Blood 3.1 mmol/L (3.5-5.5); Sodium, Blood 138 mmol/L (136-145)
--- NOTE | 2021-12-19 17:20 | NUR ---
SHIFT SUMMARY PT A&O X4 AND IN PLEASENT MOOD T/O SHIFT. PT RESTED IN BED T/O SHIFT. PT APPEARS VERY TIRED AND COMMUNICATES W/ A WHISPER TONE. TOLERATING PO INTAKE, THOUGH VERY MIN. AMOUNTS. NUTRITIONAL SHAKES OFFERED. ENCOURAGED FLUTTER VALVE THERAPY T/O SHIFT, PT STATED, "I DON'T HAVE ENOUGH BREATH OR ENERGY" DURING SEVERAL ATTEMPTS. VSS. CALL LIGHT IS W/IN REACH. TELE MONITOR IN PLACE.
[2021-12-20 03:30] LABS: Albumin, Blood 1.6 g/dL (3.4-5.0); Anion Gap 7 mmol/L (6-16); Blood Urea Nitrogen 12 mg/dL (8-24); Bun/Creatinine Ratio 16.2 (12.0-20.0); CO2, Blood 27 mmol/L (21-32); Calcium, Blood 7.8 mg/dL (8.5-10.1); Chloride, Blood 106 mmol/L (98-108); Creatinine, Blood 0.74 mg/dL (0.60-1.20); Glomerular Filtration Rate >60 (60-); Glucose, Blood 110 mg/dL (70-99); Phosphorus, Blood 2.8 mg/dL (2.5-4.9); Potassium, Blood 3.8 mmol/L (3.5-5.5); Sodium, Blood 140 mmol/L (136-145)
--- NOTE | 2021-12-20 04:50 | NUR ---
CALLED HOSPITALIST REGARDING BLOOD CULTURE RESULT - SAID TO CONTINUE WITH JJ
--- NOTE | 2021-12-20 05:38 | NUR ---
SAFE DEPOSIT BOX RENTAL CLERK SUMMARY ADMITTED FOR PNA. PT ADMITS TO FEELING GENERALLY WEAK AT START OF SHIFT. REPORTS FEELING IMPROVED THIS MORNING. MEDICATED X1 WITH TYLENOL FOR FEVER OF 101.2 WITH IMPROVEMENT TO 98.4. RECEIVED ONE DOSE OF IV VANCO. PT WITH BLOOD CULTURE POSITIVE FOR GRAM POSITIVE COCCI IN CLUSTERS. HOSPITALIST NOTIFIED. PT ALERT AND ORIENTED X4. CONTINENT AND USING URINAL WITHOUT ASSISTANCE. CALLS APPROPRIATELY.
--- NOTE | 2021-12-20 10:20 | NUR ---
DR CHUNG @ BEDSIDE DR CHUNG PLAN TO PERFORM FREDDIE AROUND NOON THIS SHIFT, PT NPO SINCE 0000.
--- NOTE | 2021-12-20 16:57 | NUR ---
CARDIOLOGY CARDIOLOGY @ BEDSIDE NOW PERFORMING FREDDIE. PT NPO T/O SHIFT.
--- NOTE | 2021-12-20 17:53 | NUR ---
FREDDIE IN RM 341 COMPLETE, PT SIVA WELL, GAVE VERSED 1MG, AND 75MCG FENTANYL TOTAL, MONITORED HEMODYNAMICS FOR 30 MIN AFTER, THEN GAVE REPORT TO 341 RN
--- NOTE | 2021-12-20 19:23 | NUR ---
SHIFT SUMMARY PT A&O X4 AND IN PLEASENT MOOD T/O SHIFT. PT WAS NPO T/O MOST OF SHIFT IN PREPERATION FOR FREDDIE PROCEDURE. PT FREDDIE PROCEDURE WAS COMPLETE @ BEDSIDE DURING THIS SHIFT, AND HAS BEEN TOLERATING PO INTAKE WELL, DENIES N/V. PT ABLE TO TALK AFTER PROCEDURE WAS EXCITED TO SHOW STAFF PICTURES OF HIS FISH HE HAS CAUGHT. VANCO CURRENTLY RUNNING. DAUGHTER AND SON UPDATED ON PT CONDITION. CALL LIGHT W/IN REACH. TELE IN PLACE. 6L NC.
--- NOTE | 2021-12-21 03:24 | NUR ---
TELE CHANGES SCRAPER OPERATOR MARCH REPORTS TELE CHANGES THAT STARTED AT 0215 WHILE THIS RN WAS AWAY AT LUNCH. HI DONALDSON RN WAS COVERING MY GROUP. ELECTROENCEPHALOGRAPH TECHNICIAN CALLED BULK SEALER OPERATOR SENAIT DOMINGUEZ RN TO NOTIFY HER OF RHYTHMN CHANGE. PT HAS HX OF GOING IN AND OUT OF BIGEMINY THIS ADMISSION BUT HE HAS BEEN SUSTAINING THE RHYTHMN WHICH IS UNCOMMON FOR PT. RATE IS LOW 100'S. PT REPORTS CHEST PAIN THAT STARTED AT 8 (0-10) BUT AT THE TIME OF WRITING HAS NOW DECREASED TO A 6 (0-10). PT REPORTS THAT PAIN IS BETTER AND HE DECLINES ANYTHING FOR PAIN STATING THAT HE WOULD RATHER NOT TAKE PAIN MEDICATION IF HE DOESNT HAVE TO. SKIN IS WARM AND DRY, NO N/V. EKG PERFORMED, THERE WERE SOME CHANGES FROM PRIOR EKG. DR. PEMBERTON CALLED AND NOTIFIED OF EKG AND OF RHYTHMN CHANGES AND PT CHEST PAIN. HE STATES TO MAKE SURE CBC ORDERED FOR THIS AM AND GAVE ORDER FOR EKG THAT WAS PERFORMED. NO ADDITIONAL ORDERS GIVEN.
--- NOTE | 2021-12-21 03:47 | NUR ---
0230 TELE TAX LAWYER MARCH CALLED TO LET US KNOW PT WAS IN BIGEMINY AND SUSTAINING AND HAD BEEN SUSTAINING FOR ALMOST 15 MINUTES, RATE IS LOW 100'S. WENT TO CHECK ON PT AND PT REPORTED AN INCREASE IN CHEST PAIN. VS DONE, STABLE. EKG DONE, IT DOES SHOW SOME CHANGES. PRIMARY RN TO GIVE PAIN MEDS AND SPEAK WITH
[2021-12-21 04:52] LABS: Hematocrit 37.5 % (37.0-53.0); Hemoglobin 12.4 g/dL (13.5-17.5); Mean Corpuscular HGB 30.3 pg (26.0-34.0); Mean Corpuscular HGB Conc 33.1 g/dL (31.5-36.5); Mean Corpuscular Volume 92 fL (80-100); Mean Platelet Volume 9.6 fL (9.1-12.4); Platelet Count 193 K/mm3 (150-400); RDW Coefficient Variation 13.8 % (11.7-14.2); RDW Standard Deviation 46.5 fL (35.1-46.3); Red Blood Cell Count 4.09 M/mm3 (4.30-5.90); White Blood Cell Count 16.44 K/mm3 (4.00-11.30)
[2021-12-21 05:13] LABS: BAND PERCENT MAN 6 % (0-8); BASOPHILS ABSOLUTE MAN 0.32 K/mm3 (0.00-0.23); BASOPHILS PERCENT MAN 2 % (0-2); EOSINOPHILS ABSOLUTE MAN 0.32 K/mm3 (0.00-0.68); EOSINOPHILS PERCENT MAN 2 % (0-6); LYMPHOCYTES ABSOLUTE MAN 0.82 K/mm3 (0.84-5.20); LYMPHOCYTES PERCENT MAN 5 % (21-46); METAMYELOCYTE ABSOLUTE MAN 0.49 K/mm3 (0.00-0.00); METAMYELOCYTE PERCENT MAN 3 % (0-0); MONOCYTES ABSOLUTE MAN 0.32 K/mm3 (0.16-1.47); MONOCYTES PERCENT MAN 2 % (4-13); MYELOCYTE ABSOLUTE MAN 0.16 K/mm3 (0.00-0.00); MYELOCYTE PERCENT MAN 1 % (0-0); NEUTROPHILS ABSOLUTE MAN 13.97 K/mm3 (1.96-9.15); SEG NEUTROPHILS PERCENT MAN 79 % (41-73); TOTAL CELLS COUNTED 100
--- NOTE | 2021-12-21 06:40 | NUR ---
SHIFT SUMMARY PT HAS RESTED OFF AND ON T/O SHIFT. PT COMPLAINS OF GENERALIZED PAIN AND TOUSSAINT THAT IS RELIEVED WITH TYLENOL. AROUND 0215 PT WENT INTO BIGEMINY AND HAS SUSTAINED THAT RYTHM FOR THE DURATION OF THE SHIFT. PT COMPLAINED OF CHEST PAIN INITIALLY 8 (0-10), DURING THAT TIME THAT DECREASED TO A 6 (0-10), PT HAS HAD PRIOR COMPLAINTS OF CHEST PAIN THIS ADMISSION. PT DECLINED ANYTHING FOR PAIN AND FELL ASLEEP A SHORT TIME AFTER EPISODE. DR. COLEMAN WAS NOTIFIED OF TELE CHANGES/CHEST PAIN. HE ASKED IF AM LABS WERE ORDERED AND THEY WERE. HE GAVE NO ADDITIONAL ORDERS. VITALS HAVE BEEN STABLE. PT A/OX3. RESP E/U, SKIN IS WARM AND DRY. NO OTHER CHANGES TO REPORT THIS SHIFT. PLEASE SEE PRIOR NURSES NOTE REGARDING TELE CHANGES. EKG STRIPS IN CHART. BED IN LOWEST POSITION, CALL LIGHT WITHIN REACH.
--- NOTE | 2021-12-21 16:41 | NUR ---
SHIFT SUMMARY PATIENT IS ALERT AND ORIENTED 3/4. PATIENT IS PLEASENT AND COOPERATIVE WITH CARE. PATIENT HAS HAD LOW APPETITE THIS SHIFT. PATIENT DENIES PAIN, NAUSEA, VOMITTING AND SOB. PATIENT REPORTS HEADACHE AND HAS A LOW GRADE FEVER, TYLENOL GIVEN WITH GOOD EFFECT PER PATIENT. PATIENT HAS BEEN ON 4 LITERS ALL SHIFT SATTING ABOVE 90 %. NO ACUTE EVENTS THIS SHIFT. VITAL SIGNS REVIEWED. BED IN LOWEST POSITION. CALL LIGHT IN PLACE. WILL MONITOR UNTIL SHIFT CHANGE.
[2021-12-22 03:46] LABS: Vancomycin, Trough 19.8 ug/mL (5.0-10.0)
--- NOTE | 2021-12-22 05:28 | NUR ---
SHIFT SUMMARY: A&OX4, TELE = NSR 80S WITH RARE PVCS, 4L O2 SAT > 92% DIMINSHED BREATH SOUNDS, STRONG PRODUCTIVE COUGH BROWN SPUTUM. COMPLAINS OF LOWER BACK AND PLEURETIC PAIN 7/10 MEDICATED PER EMAR. DECREASED APPETITIE. BOWEL TONES ACTIVE X4 QUAD. INTERMITTENT NAUSEA. DENIES CONSTIPATION. PASSING FLATULANCE. FEBRILE WITH AM VITALS 100.5 PATIENT REFUSED TYLENOL STATING "IT UPSETS MY STOMACH" PLACED COOL WASHCLOTHS ACROSS FOREHEAD. WILL RETAKE TEMP. PATIENT APPEARS WEAK AND FATIGUED. WCTM.
[2021-12-22 08:07] LABS: BASOPHILS ABSOLUTE AUTO 0.13 K/mm3 (0.00-0.23); BASOPHILS PERCENT AUTO 1 % (0-2); EOSINOPHILS ABSOLUTE AUTO 0.16 K/mm3 (0.00-0.68); EOSINOPHILS PERCENT AUTO 1 % (0-6); Hematocrit 38.6 % (37.0-53.0); Hemoglobin 12.7 g/dL (13.5-17.5); IMMATURE GRAN ABSOLUTE AUTO 1.37 K/mm3 (0.00-0.10); IMMATURE GRAN PERCENT AUTO 6 % (0-1); LYMPHOCYTES ABSOLUTE AUTO 1.13 K/mm3 (0.84-5.20); LYMPHOCYTES PERCENT AUTO 5 % (21-46); MONOCYTES ABSOLUTE AUTO 1.37 K/mm3 (0.16-1.47); MONOCYTES PERCENT AUTO 6 % (4-13); Mean Corpuscular HGB Conc 32.9 g/dL (31.5-36.5); Mean Corpuscular Volume 91 fL (80-100); Mean Platelet Volume 9.7 fL (9.1-12.4); NEUTROPHILS PERCENT AUTO 82 % (41-73); Platelet Count 252 K/mm3 (150-400); RDW Coefficient Variation 13.8 % (11.7-14.2); RDW Standard Deviation 46.2 fL (35.1-46.3); Red Blood Cell Count 4.24 M/mm3 (4.30-5.90); White Blood Cell Count 22.96 K/mm3 (4.00-11.30)
[2021-12-22 08:41] LABS: BAND PERCENT MAN 1 % (0-8); BASOPHILS PERCENT MAN 0 % (0-2); EOSINOPHILS PERCENT MAN 0 % (0-6); LYMPHOCYTES PERCENT MAN 7 % (21-46); MONOCYTES PERCENT MAN 0 % (4-13); MYELOCYTE ABSOLUTE MAN 0.22 K/mm3 (0.00-0.00); MYELOCYTE PERCENT MAN 1 % (0-0); NEUTROPHILS ABSOLUTE MAN 21.12 K/mm3 (1.96-9.15); SEG NEUTROPHILS PERCENT MAN 91 % (41-73); TOTAL CELLS COUNTED 100
--- NOTE | 2021-12-22 16:13 | NUR ---
SHIFT SUMMARY PATIENT IS ALERT AND ORIENTED X3-4. PATIENT HAS BEEN ON 4LITERS O2 SATTING ABOVE 92 ENTIRE SHIFT. PATIENT HAS HAD DECREASED APPETITE THIS SHIFT. PATIENT HAS DENIED NEEDING PAIN MEDICATIONS, HAS HAD INTERMITTENT NAUSEA. PATIENT HAS NOT HAD A FEVER THIS SHIFT. PATIENT TAKES MEDICATIONS IN APPLESAUCE WELL. PATIENT HAS HAD NO ACUTE EVENTS THIS SHIFT. VITAL SIGNS REVIEWED. BED IN LOWEST POSITION. CALL LIGHT IN PLACE. WILL MONITOR UNTIL SHIFT CHANGE.
[2021-12-23 03:33] LABS: BASOPHILS ABSOLUTE AUTO 0.13 K/mm3 (0.00-0.23); BASOPHILS PERCENT AUTO 1 % (0-2); EOSINOPHILS ABSOLUTE AUTO 0.15 K/mm3 (0.00-0.68); EOSINOPHILS PERCENT AUTO 1 % (0-6); Hematocrit 38.6 % (37.0-53.0); Hemoglobin 12.9 g/dL (13.5-17.5); IMMATURE GRAN ABSOLUTE AUTO 0.84 K/mm3 (0.00-0.10); IMMATURE GRAN PERCENT AUTO 4 % (0-1); LYMPHOCYTES ABSOLUTE AUTO 1.14 K/mm3 (0.84-5.20); LYMPHOCYTES PERCENT AUTO 6 % (21-46); MONOCYTES ABSOLUTE AUTO 1.22 K/mm3 (0.16-1.47); MONOCYTES PERCENT AUTO 6 % (4-13); Mean Corpuscular HGB 30.4 pg (26.0-34.0); Mean Corpuscular HGB Conc 33.4 g/dL (31.5-36.5); Mean Corpuscular Volume 91 fL (80-100); Mean Platelet Volume 9.2 fL (9.1-12.4); NEUTROPHILS ABSOLUTE AUTO 17.12 K/mm3 (1.96-9.15); NEUTROPHILS PERCENT AUTO 83 % (41-73); Platelet Count 242 K/mm3 (150-400); RDW Coefficient Variation 13.7 % (11.7-14.2); RDW Standard Deviation 46.1 fL (35.1-46.3); Red Blood Cell Count 4.24 M/mm3 (4.30-5.90)
[2021-12-23 03:51] LABS: Vancomycin, Trough 15.8 ug/mL (5.0-10.0)
--- NOTE | 2021-12-23 05:52 | NUR ---
SHIFT SUMMARY REMAINED AFEBRILE ON NOC. PAIN TREATED PER EMAR. PIV TO RAC PAINFUL. NOTED ERRYTHEMA TO SITE. NEW ACCESS OBTAINED LAC. CONDOM CATH REPLACED WORKING WELL. ADEQUATE URINE OUTPUT. REMAINS ON 4L. PRODUCTIVE COUGH WITH MONTES SPUTUM. LETHARGIC, LACKS MOTIVATION, APPEARS TO BE IN BETTER SPIRITS TONIGHT. PATIENT IS JOKING WITH STAFF.
--- NOTE | 2021-12-23 16:30 | NUR ---
SHIFT SUMMARY PATIENT IS ALERT AND ORIENTED 3-4X. PATIENT HAS NOT COMPLAINED OF PAIN, NAUSEA SOB OR VOMITTING THIS SHIFT. PATIENT HAS COMPLAINED OF DISCOMFORT OF INFILTRATED IV SITE ON RIGHT ARM. PATIENT HAS ON CONDOM CATH THAT IS WORKING WELL. PATIENT IS STILL ON 4 LITERS SATTING ABOVE 92 PERCENT. PATIENT HAS PRODUCTIVE BROWN SPUTUM COUGH. NO ACUTE ISSUES THIS SHIFT. BED IN LOWEST POSITION. CALL LIGHT IN PLACE. WILL MONITOR UNTIL SHIFT CHANGE.
[2021-12-24 06:43] LABS: BASOPHILS ABSOLUTE AUTO 0.11 K/mm3 (0.00-0.23); BASOPHILS PERCENT AUTO 1 % (0-2); EOSINOPHILS ABSOLUTE AUTO 0.18 K/mm3 (0.00-0.68); EOSINOPHILS PERCENT AUTO 1 % (0-6); Hematocrit 40.6 % (37.0-53.0); Hemoglobin 13.3 g/dL (13.5-17.5); IMMATURE GRAN ABSOLUTE AUTO 0.58 K/mm3 (0.00-0.10); IMMATURE GRAN PERCENT AUTO 3 % (0-1); LYMPHOCYTES ABSOLUTE AUTO 1.12 K/mm3 (0.84-5.20); LYMPHOCYTES PERCENT AUTO 6 % (21-46); MONOCYTES ABSOLUTE AUTO 1.35 K/mm3 (0.16-1.47); MONOCYTES PERCENT AUTO 7 % (4-13); Mean Corpuscular HGB 30.4 pg (26.0-34.0); Mean Corpuscular HGB Conc 32.8 g/dL (31.5-36.5); Mean Corpuscular Volume 93 fL (80-100); NEUTROPHILS ABSOLUTE AUTO 16.02 K/mm3 (1.96-9.15); NEUTROPHILS PERCENT AUTO 83 % (41-73); Platelet Count 249 K/mm3 (150-400); RDW Coefficient Variation 13.7 % (11.7-14.2); RDW Standard Deviation 46.5 fL (35.1-46.3); Red Blood Cell Count 4.37 M/mm3 (4.30-5.90); White Blood Cell Count 19.36 K/mm3 (4.00-11.30)
--- NOTE | 2021-12-24 16:53 | NUR ---
SHIFT SUMMARY PATIENT DENIES PAIN, NAUSEA, AND SHORTNESS OF BREATH AT REST. PATIENT REPORTS SOB WITH ACTIVITY. PATIENT IS ON 4L VIA N/C. PATIENT IS MAINTAINING SATS ABOVE 92%. PATIENT IS A SBA FOR TRANSFERS. CONDOM CATH CHANGED TODAY. PATIENT DID WORK WITH PT TODAY. THEY ARE RECOMMENDING SNF. PATIENT HAS VERY POOR PO INTAKE. PATIENT WAS VERY TEARFUL TODAY. PALLIATIVE CARE CONSULTED. PATIENT IS PLEASANT AND COOPERATIVE WITH CARE.
[2021-12-25 04:09] LABS: BASOPHILS ABSOLUTE AUTO 0.11 K/mm3 (0.00-0.23); BASOPHILS PERCENT AUTO 1 % (0-2); EOSINOPHILS ABSOLUTE AUTO 0.33 K/mm3 (0.00-0.68); EOSINOPHILS PERCENT AUTO 2 % (0-6); Hematocrit 37.4 % (37.0-53.0); Hemoglobin 12.3 g/dL (13.5-17.5); IMMATURE GRAN ABSOLUTE AUTO 0.56 K/mm3 (0.00-0.10); IMMATURE GRAN PERCENT AUTO 4 % (0-1); LYMPHOCYTES ABSOLUTE AUTO 1.22 K/mm3 (0.84-5.20); LYMPHOCYTES PERCENT AUTO 8 % (21-46); MONOCYTES PERCENT AUTO 9 % (4-13); Mean Corpuscular HGB 30.7 pg (26.0-34.0); Mean Corpuscular HGB Conc 32.9 g/dL (31.5-36.5); Mean Corpuscular Volume 93 fL (80-100); Mean Platelet Volume 10.1 fL (9.1-12.4); NEUTROPHILS PERCENT AUTO 77 % (41-73); Platelet Count 285 K/mm3 (150-400); RDW Coefficient Variation 13.7 % (11.7-14.2); RDW Standard Deviation 46.7 fL (35.1-46.3); Red Blood Cell Count 4.01 M/mm3 (4.30-5.90); White Blood Cell Count 15.12 K/mm3 (4.00-11.30)
--- NOTE | 2021-12-25 04:24 | NUR ---
SHIFT SUMMARY NO ACUTE CHANGES TO PT CONDITION AT THIS TIME. PT A&O X 4, PLEASANT, AND COOPERATIVE WITH CARE. PT ON TELE, LAST ONE READ SINUS RHYTHM 93 WITH BIGEMINAL PVC'S. PT ON 4L O2, BASELINE IS NO O2. PT HAS CONDOM CATHETER. L AC IV, FLUSHES HARD. STILL AWAITING VANCO TROUGH TO GET 4 AM VANCO FROM PHARMACY. PT GIVEN SNACKS THIS AM. PT HAS CALL LIGHT WITHIN REACH. WILL CONTINUE TO MONITOR.
[2021-12-25 04:35] LABS: Anion Gap 7 mmol/L (6-16); Blood Urea Nitrogen 16 mg/dL (8-24); Bun/Creatinine Ratio 20.4 (12.0-20.0); CO2, Blood 23 mmol/L (21-32); Calcium, Blood 8.1 mg/dL (8.5-10.1); Chloride, Blood 107 mmol/L (98-108); Creatinine, Blood 0.79 mg/dL (0.60-1.20); Glomerular Filtration Rate >60 (60-); Glucose, Blood 102 mg/dL (70-99); Potassium, Blood 3.9 mmol/L (3.5-5.5); Sodium, Blood 137 mmol/L (136-145)
[2021-12-25 04:38] LABS: Vancomycin, Trough 20.9 ug/mL (5.0-10.0)
--- NOTE | 2021-12-25 08:36 | NUR ---
Comfort care referral on new admission received during the night. Visit made to bedside after case conferencing with pt's RN. Pt somnolent and did not wake to voice or touch. O2 per nc in place with humidifier. Pt with resp rate of 20-22 min and sl labored but not distressed at this time. at bedside and very tearful. He tells me that her cancer dx was received less than a week ago and "she is going very quickly". He states pt wants to be at home and it is his intention to take her home today. He would like hospice support there. Family is clearing living room for hosp bed at a window for her. Kp does not have a preference of hospice agency and lives [place] of [facility]. Pt appears mostly comfortable but does not have adequate prn comfort care medications ordered yet. I contacted [facility]IK[facility] Oneil to report all of the above. RN updated also. Clarice reported back that [facility] is able to admit pt to services at their home today. We will inform .
--- NOTE | 2021-12-25 16:17 | NUR ---
Spiritual care visit conducted. Patient immediately tells me about how challenging OT/PT has been. "Every morning, I feel pre-exhausted, like I am wiped out before I even start." He does realize that he needs to push physically to gain his strength and independence back. I explore his spiritual beliefs and find that there is much motivation and gini connected to his Anabaptist Restoration josé miguel. We talk indepth about the inspiration and encouragement he receives from the Bible, prayer and his latter day friends (pt attends [employer] in [place]). Pt seems to have moments of insight that positively impact his drive and motivation to push at recovery. Pt shares about his tour as a [employer] in [place], his family history and his career as a general production laborer. I normalize his experience, reinforce helpful attitudes and practices, recite inspirational Biblical passages, and provide therapeutic listening, gentle head counselor and prayer. Patient responds well and shows signs of being encouraged in his josé miguel and having a resolve to work toward a healthier physical state. I will continue to remain available to patient and family.
--- NOTE | 2021-12-25 17:45 | NUR ---
SHIFT SUMMARY PATIENT DENIES PAIN, NAUSEA, AND SHORTNESS OF BREATH AT REST. PATIENT DOES REPORT SHORTNESS OF BREATH WITH ACTIVITY. PATIENT WAS TITRATED TO 2.5L VIA N/C AND MAINTAINING SATS ABOVE 90%. PATIENT WORKED WITH OT TODAY. PATIENT REPORTED BEING TOO TIRED TO WORK WITH PT. CROWN IRONER OPERATOR VISITED WITH PATIENT. PATIENT IS A SBA FOR TRANSFERS. CONDOM CATH IS PATENT AND DRAINING TO GRAVITY. PATIENT HAS BETTER PO INTAKE TODAY. PATIENT IS PLEASANT AND COOPERATIVE WITH CARE.
[2021-12-26 04:33] LABS: BASOPHILS ABSOLUTE AUTO 0.13 K/mm3 (0.00-0.23); BASOPHILS PERCENT AUTO 1 % (0-2); EOSINOPHILS ABSOLUTE AUTO 0.35 K/mm3 (0.00-0.68); EOSINOPHILS PERCENT AUTO 2 % (0-6); Hematocrit 37.6 % (37.0-53.0); Hemoglobin 12.4 g/dL (13.5-17.5); IMMATURE GRAN ABSOLUTE AUTO 0.41 K/mm3 (0.00-0.10); IMMATURE GRAN PERCENT AUTO 3 % (0-1); LYMPHOCYTES ABSOLUTE AUTO 1.18 K/mm3 (0.84-5.20); LYMPHOCYTES PERCENT AUTO 8 % (21-46); MONOCYTES ABSOLUTE AUTO 1.45 K/mm3 (0.16-1.47); MONOCYTES PERCENT AUTO 10 % (4-13); Mean Corpuscular HGB 30.5 pg (26.0-34.0); Mean Corpuscular Volume 92 fL (80-100); Mean Platelet Volume 9.6 fL (9.1-12.4); NEUTROPHILS ABSOLUTE AUTO 11.48 K/mm3 (1.96-9.15); NEUTROPHILS PERCENT AUTO 77 % (41-73); Platelet Count 344 K/mm3 (150-400); RDW Coefficient Variation 13.6 % (11.7-14.2); RDW Standard Deviation 46.5 fL (35.1-46.3); Red Blood Cell Count 4.07 M/mm3 (4.30-5.90)
[2021-12-26 16:04] LABS: Vancomycin, Trough 8.9 ug/mL (5.0-10.0)
--- NOTE | 2021-12-26 16:13 | NUR ---
Spiritual care visit conducted. Patient talks about will, drive and focus and how those have lifted as his josé miguel is lifted. He then shares about his spiritual journey, confesses sins and discloses how far he has come. He gives all credit to God, his Pentecostal josé miguel and pt's ability to fully surrender to His plan. Patient is tearful at times as he he talks about how kind and redeeming, he feels, God has been in pt's life. I watch pt encourage himself and his hope arise as he lays out the stories of the darkness being turned into light. I hear confession and provide pastoral drug and alcohol counsellor and prayer. Patient responds well and shows signs being encouraged by his own story. Patient asks if I would return so he could tell me more.
--- NOTE | 2021-12-26 18:34 | NUR ---
SHIFT SUMMARY PT HAS NOT BEEN FEELING WELL DUE TO LACK OF SLEEP. AFTER A NAP TODAY HE FELT MUCH BETTER. CHEST XRAY DETERMINED THE PNEUMONIA IS STILL PRESENT, PT WORKED WITH SPEECH THERAPY, OCCUPATIONAL AND PHYSICAL THERAPY. ALL REPORT THAT HE IS DOING WELL AND MAY JUST NEED HOME HEALTH WHEN HE RETURNS HOME. WILL CONTINUE TO MONITOR.
--- NOTE | 2021-12-26 18:49 | NUR ---
attemtpted visit will try again tomorrow.
--- NOTE | 2021-12-27 06:47 | NUR ---
SHIFT SUMMARY: A&OX4, REAMINS ON 2L NC O2 > 93%, LCTA WITH DMINISHED BASES. STRONG PRODUCTIVE COUGH PRODUCING THICK MONTES SPUTUM. HEADACHE TREATED PER EMAR. NO SIGNIFICANT EVENTS OVERNIGHT.
--- NOTE | 2021-12-27 18:03 | NUR ---
SHIFT SUMMARY PT HAS BEEN FEELING A LITTLE BETTER SINCE HE HAS BEEN ABLE TO REST DURING THE DAY. HE HAS WORKED WITH PHYSICAL THERAPY TODAY AND HAS EATEN MORE OF HIS FOOD. HE IS WORRIED BY THE FACT THAT HIS PNEUMONIA IS GETTING WORSE, BUT HE WAS ABLE TO RECIEVE A VISIT FROM HIS PASTER WHICH HAS HELPED HIM CALM CONSIDERABLY. HE CIVIL ENGINEERING PROFESSIONAL ALSO [ROMISED TO BRING HIS BIBLE WHICH HAS EASED HIS MIND. PT TOLERATED NEW ABX FOR INEFECTION WELL. WILL CONTINUE TO MONITOR.
--- NOTE | 2021-12-28 04:34 | NUR ---
SHIFT SUMMARY: A&OX4, PATIENT WAS IN GOOD SPIRITS AT START OF SHIFT. THROUGH THE NIGHT HE GOT PROGESSIVELY SOMBER IN MOOD. HE MADE STATEMENTS SUCH "I JUST CANT DO THIS ANYMORE" "IF IT'S MY TIME, I NEED TO FACCE REALITY THE TREATMENTS ARENT WORKING" "I'M GOING TO TALK TO MY DAUGHTER AND LET HER KNOW I'M DONE" UTILIZED THERAPEUTIC COMMUNICATION TO EXPLORE PATIENTS FEELING, EXPLAINED PLAN OF CARE, ID INPUT TO HIS CASE, AND CHANGE IN ABX. PATIENT HAS CONTINUED TO MAKE COMMENTS REGARDING WITHDRAWING TREATMENT TODAY IF HE DOES NOT SEE IMPROVEMENT. I OFFERED TO HAVE NOC HOPSITALIST COME AND SPEAK WTIH HIM, HE DECLINED SAYING HE WOULD COMPLETE THE INFUSING ABX AND REEVALUATE LATER IN THE DAY AND SPEAK WITH HIS DAUGHTER. PATIENT REAMINS ON 2L NC, DIMINISHED BREATH SOUNDS BILATERAL, PRODUCTIVE COUGH WITH BROWN SPUTUM. SPUTUM SAMPLE SENT TO LAB. AMBULATED TO THE BATHROOM SBA WITH FWW FOR BOWEL MOVEMENT. OVERALL MALASIE, WEAKNESS, AND DEPRESSION.
[2021-12-28 04:57] LABS: BASOPHILS ABSOLUTE AUTO 0.11 K/mm3 (0.00-0.23); BASOPHILS PERCENT AUTO 1 % (0-2); EOSINOPHILS ABSOLUTE AUTO 0.28 K/mm3 (0.00-0.68); EOSINOPHILS PERCENT AUTO 2 % (0-6); Hematocrit 34.9 % (37.0-53.0); Hemoglobin 11.5 g/dL (13.5-17.5); IMMATURE GRAN ABSOLUTE AUTO 0.28 K/mm3 (0.00-0.10); IMMATURE GRAN PERCENT AUTO 2 % (0-1); LYMPHOCYTES ABSOLUTE AUTO 0.86 K/mm3 (0.84-5.20); LYMPHOCYTES PERCENT AUTO 6 % (21-46); MONOCYTES ABSOLUTE AUTO 1.38 K/mm3 (0.16-1.47); MONOCYTES PERCENT AUTO 10 % (4-13); Mean Corpuscular HGB 30.5 pg (26.0-34.0); Mean Corpuscular Volume 93 fL (80-100); Mean Platelet Volume 9.1 fL (9.1-12.4); NEUTROPHILS ABSOLUTE AUTO 11.28 K/mm3 (1.96-9.15); NEUTROPHILS PERCENT AUTO 79 % (41-73); Platelet Count 324 K/mm3 (150-400); RDW Coefficient Variation 13.5 % (11.7-14.2); RDW Standard Deviation 46.1 fL (35.1-46.3); Red Blood Cell Count 3.77 M/mm3 (4.30-5.90); White Blood Cell Count 14.19 K/mm3 (4.00-11.30)
[2021-12-28 05:38] LABS: Anion Gap 8 mmol/L (6-16); Blood Urea Nitrogen 15 mg/dL (8-24); Bun/Creatinine Ratio 17.1 (12.0-20.0); CO2, Blood 24 mmol/L (21-32); Calcium, Blood 7.8 mg/dL (8.5-10.1); Chloride, Blood 104 mmol/L (98-108); Creatinine, Blood 0.88 mg/dL (0.60-1.20); Glomerular Filtration Rate >60 (60-); Glucose, Blood 116 mg/dL (70-99); Potassium, Blood 4.2 mmol/L (3.5-5.5); Sodium, Blood 136 mmol/L (136-145)
--- NOTE | 2021-12-28 11:53 | NUR ---
Spiritual care visit conducted. Pt talks at length about his struggle to be motivated to keep trying to get well, about his many regrets in life and about the mental struggles he has had due to the [place] war. I normalize patient's experience, her confession and provide therapeutic listening, anxiety containment, gentle staff counselor and prayer. Patient responds well and shows signs of catharsis and spiritual re-alignment,
--- NOTE | 2021-12-28 17:42 | NUR ---
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 HE HAS RECIEVED SPIRITUAL CARE FROM OUR [facility] AND THAT SEEMS TO HELP. HIS INFECTION HAS BEEN IMPROVING SINCE SWITCHING ANTIBIOTICS. AFTER DISCUSSING HIS IMPROVEMENT HIS MOOD HAS IMPROVED. WILL CONTINUE TO MONITOR.
--- NOTE | 2021-12-29 04:02 | NUR ---
SHIFT SUMMARY: PATIENT IS IN BETTER SPIRITS TONIGHT, HE IS WORRIED ABOUT HIS BILLS BEING PAID HE USES A CHECKBOOK AND MAILS IN PAYMENTS. PATIENT REMAINS WITH ORAL PAIN, MAGIC MOUTHWASH ADMINISTERED. DUE TO OPEN SORES PATIENT REFUSED HIS COUGH SYRUP AND ASMANEX. NOTED NEW +1 PITTING EDEMA TO BLE. PATIENT HAS SLEPT WELL THROUGH THE NIGHT. SPOKE TO PATIENTS DAUGHTER OVER THE PHINE. SHE HAD LOTS OF QUESTIONS REGARDING PATIENTS CONDITION, POC, AND DC PLAN. ANSWERED ALL QUESTIONS AND CONCERNS. SHE REQUESTED A FORMAL UPDATE FROM ATTENDING MD. WILL ADVISE DAY RN. SHE IS PLANNING TO COME TO [place] FROM [facility] NEXT WEEKEND 01/04. TO HELP WITH PATIENTS BILLS AND CHECK ON HIS DOG THAT IS BEING KENNELED.
[2021-12-29 05:05] LABS: BASOPHILS ABSOLUTE AUTO 0.08 K/mm3 (0.00-0.23); BASOPHILS PERCENT AUTO 1 % (0-2); EOSINOPHILS ABSOLUTE AUTO 0.22 K/mm3 (0.00-0.68); EOSINOPHILS PERCENT AUTO 2 % (0-6); Hematocrit 36.3 % (37.0-53.0); Hemoglobin 11.7 g/dL (13.5-17.5); IMMATURE GRAN ABSOLUTE AUTO 0.19 K/mm3 (0.00-0.10); IMMATURE GRAN PERCENT AUTO 2 % (0-1); LYMPHOCYTES ABSOLUTE AUTO 1.07 K/mm3 (0.84-5.20); LYMPHOCYTES PERCENT AUTO 10 % (21-46); MONOCYTES ABSOLUTE AUTO 1.09 K/mm3 (0.16-1.47); MONOCYTES PERCENT AUTO 11 % (4-13); Mean Corpuscular HGB Conc 32.2 g/dL (31.5-36.5); Mean Corpuscular Volume 93 fL (80-100); Mean Platelet Volume 9.5 fL (9.1-12.4); NEUTROPHILS ABSOLUTE AUTO 7.73 K/mm3 (1.96-9.15); NEUTROPHILS PERCENT AUTO 75 % (41-73); Platelet Count 310 K/mm3 (150-400); RDW Coefficient Variation 13.7 % (11.7-14.2); RDW Standard Deviation 46.1 fL (35.1-46.3); White Blood Cell Count 10.38 K/mm3 (4.00-11.30)
[2021-12-29 08:09] LABS: HIV AB/P24 AG SCREEN Non Reactive (Non Reactive)
--- NOTE | 2021-12-29 15:40 | NUR ---
[facility] on friday to follow him pt high risk for readmission.
--- NOTE | 2021-12-29 18:40 | NUR ---
SUMMARY- PT ALERT AND ORIENTED. GETS UP TO CHAIR INDEPENDANTLY FOR MEALS. HAS A DECREASED APPETITE. LUNGS DIM BASES, PRODUCTIVE COUGH WITH BROWN SPUTUM. CONT PULSE OX 90-95% 2L O2. MOUTH HEALING FROM THRUSH, STILL PAINFUL ON ROOF OF MOUTH. DECLINED MAJIC MOUTH WASH, USED CEPACHOL. PT HAS ANKLE EDEMA AND PETECHIAE TO KNEES AND ANKLE/FEET, PAIN IN JOINTS, DECLINED TYLENOL. NOTIFIED DR CORIE YOUNG THIS AFTERNOON WHEN SHE CAME BY TO SEE PT. ORDERED LABS. NOTIFIED ALSO TO CALL DAUGHTER TO GIVE UPDATE. [facility] W[facility].
--- NOTE | 2021-12-29 21:25 | NUR ---
AWAKE. REFUSED COUGH MEDS AND SLEEP MED. VOICED DISCOMFORT RE THROAT. REQUESTS AND RECEIVED THROAT LOZENGE - SEE MAR FOR DETAILS. CALL LIGHT IN REACH
--- NOTE | 2021-12-30 04:17 | NUR ---
PLASMA PROCESSING CENTRIFUGE OPERATOR SUMMARY VOICED THROAT DISCOMFORT AT SHIFT COMMENCE AND REQUESTED/RECEIVED THROAT LOZENGE. REFUSED OTHER MEDS (SEE MAR FOR DETAILS). ALSO REFUSED XYLOCAIN THROAT SWISH/SWALLOW, EVEN THOUGH NURSE EXPLAINED IT WOULD HELP WITH THE DISCOMFORT. RESTING QUIETLY AT INTERVALS. ANTIBIOTIC ADMININSTERED IV. NOTE PETECHIAE AND SWELLING OF BILAT KNEES DOWNWARD TO FEET. AREAS ELEVATED TO DECREASE SWELLING AND LOTION APPLIED TO SKIN. VOICED SOME RELIEF DURING SHIFT. CALL LIGHT IN REACH. ISOLATION PRECAUTIONS MAINTAINED.
[2021-12-30 05:05] LABS: BASOPHILS ABSOLUTE AUTO 0.11 K/mm3 (0.00-0.23); BASOPHILS PERCENT AUTO 1 % (0-2); EOSINOPHILS ABSOLUTE AUTO 0.29 K/mm3 (0.00-0.68); EOSINOPHILS PERCENT AUTO 3 % (0-6); Hematocrit 33.3 % (37.0-53.0); IMMATURE GRAN ABSOLUTE AUTO 0.26 K/mm3 (0.00-0.10); IMMATURE GRAN PERCENT AUTO 2 % (0-1); LYMPHOCYTES ABSOLUTE AUTO 1.22 K/mm3 (0.84-5.20); LYMPHOCYTES PERCENT AUTO 11 % (21-46); MONOCYTES ABSOLUTE AUTO 1.24 K/mm3 (0.16-1.47); MONOCYTES PERCENT AUTO 11 % (4-13); Mean Corpuscular HGB 30.7 pg (26.0-34.0); Mean Corpuscular Volume 93 fL (80-100); Mean Platelet Volume 9.6 fL (9.1-12.4); NEUTROPHILS ABSOLUTE AUTO 7.99 K/mm3 (1.96-9.15); NEUTROPHILS PERCENT AUTO 72 % (41-73); Platelet Count 310 K/mm3 (150-400); RDW Coefficient Variation 13.5 % (11.7-14.2); Red Blood Cell Count 3.58 M/mm3 (4.30-5.90); White Blood Cell Count 11.11 K/mm3 (4.00-11.30)
[2021-12-30 05:16] LABS: International Normalized Ratio 1.14; Prothrombin Time Results 11.9 Sec (9.7-11.5)
[2021-12-30 06:29] LABS: Alanine Aminotransfer (ALT/SGP 96 U/L (12-78); Albumin, Blood 1.5 g/dL (3.4-5.0); Albumin/Globulin Ratio 0.4 (0.8-1.8); Alk Phos 92 U/L (50-136); Anion Gap 6 mmol/L (6-16); Aspartate Aminotrans (AST/SGOT 71 U/L (12-37); Bilirubin, Total 0.4 mg/dL (0.1-1.0); Blood Urea Nitrogen 14 mg/dL (8-24); Bun/Creatinine Ratio 15.3 (12.0-20.0); CO2, Blood 25 mmol/L (21-32); Calcium, Blood 7.7 mg/dL (8.5-10.1); Chloride, Blood 105 mmol/L (98-108); Creatinine, Blood 0.91 mg/dL (0.60-1.20); Globulin, Blood 4.1 g/dL (2.2-4.0); Glomerular Filtration Rate >60 (60-); Glucose, Blood 108 mg/dL (70-99); Potassium, Blood 3.9 mmol/L (3.5-5.5); Sodium, Blood 136 mmol/L (136-145); Total Protein, Blood 5.6 g/dL (6.4-8.2)
--- NOTE | 2021-12-30 17:12 | NUR ---
SUMMARY- PT A/O 4, UP TO CHAIR FOR MEALS AND BATHROOM. DIMINISHED BASES. STRONG PROD COUGH WITH LG AMOUNT OF CLEAR/RUST TINGED SPUTUM. USES THE FLUTTER VALVE, O2 3L NC. BP IN THE MORININGS 110'S, GIVEN METOPROLOL SUCC 50MG AM AND BY MID DAY HIS HR GOES DOWN TO 47-55. MAINTAINS BP. NOTIFIED DR FLANAGAN THAT PT IS LIKELY IN A-FIB, ALTHOUGH NOT IN DOCUMENTED HX, AND PT DOESN'T BELEIVE HE'S HAD A-FIB. DR Clark WILL RE-EVAL IN THE AM. PT HAS NOT BEEN EATING THE PAST FEW DAYS ROBIN HAD HIM- BITES OF EACH MEAL, BUT TAKING IN FLUIDS WITHOUT DIFFICULTY. HAD A BM TODAY. PLACED A DIET CONSULT TO WORK ON SUPP OR FOOD PREFERANCES THAT HE MAY EAT. [facility]. PLACED TEDS TO BLE FOR ANKLE SWELLING. CONT WITH PETECHAEI KNEES AND ANKLES AND PAIN ASSOCIATED IN THOSE AREAS. AWAITING ANCA PANAL, PT/INR WNL. WILL REOPRT TO [facility].
--- NOTE | 2021-12-31 03:25 | NUR ---
CUSTOMER MARKETING INTERN SUMMARY VOICED FEELING BETTER TODAY THAN PREVIOUSLY WHEN NURSE DID ASSESSMENT AND ADMINISTERED HS MEDS. CONTINUES TO REFUSE CERTAIN MEDS - SEE MAR FOR DETAILS. IV ANTIBIOTICS INFUSING ORDERED. ISOLATION PRECAUTIONS MAINTAINED. MORE TALKATIVE THIS EVENING THAN BEFORE. DISCUSSED THINGS OF INTEREST. THINGS HE DID IN HIS LIFE, ETC. HAS BEEN RSTING QUIETLY WITH FEW INTERRUPTIONS SINCE. CALL LIGHT IN REACH
--- NOTE | 2021-12-31 13:22 | NUR ---
Spiritual care visit conducted. Patient is lying in bed and alert. Patient has a flat affect and continues to struggle with depression. Patient has a strong beliefs system centered around his Mandaeism josé miguel and is easily encouraged in the moment but then is pulled down emotionally by thoughts about his limitations and the slowness of recovery. We spend much time discussing all that he has to be thankful for and all the reasons to do the work of recovery. Again, pt is clearly uplifted and shows this in his smile, energy and enthusiasm. I reinforce helpful attitudes and practices and provide gentle general counsel and prayer. Pt reponds well and voices appreciation for the visit. I will continue to remain available to patient and family.
--- NOTE | 2021-12-31 18:52 | NUR ---
PATIENT IS SOB AND COMPLAINS OF FURTHER SHORTNESS WHEN ACTIVITY SUCH OT IS WORKING WITH HIM. HE HAS A PRODUCTIVE COUGH WITH RED/YELLOW/BROWN SPUTUM. PATIENT HAS POOR APPETITE AND THE DIETARY SPOKE WITH HIM. KORINAZACARIAS RECIEVED HIS ABX IV- HE COMPLAINS OF IV SITE PAIN WHEN FLUSHED BUT IT IS PATENT. EDEMA IS MINIMAL IN FEET. MOOD IS SOMEWHAT SAD, BUT HE LOVES TO TALK ABOUT FISHING- MOOD APPEARS TO IMPROVE WITH THIS.
--- NOTE | 2022-01-01 04:27 | NUR ---
SENIOR NET APPLICATION DEVELOPER SUMMARY MORE ENERGETIC TONIGHT THAN NOTED OVER THE PAST FEW DAYS. JOKED WITH NURSE AT AND ASKED QUESTIONS RE [place] [facility], WHICH HE IS SCHEDULED TO BE SENT AFTER HIS STAY HERE. IV ANTIBIOTICS ASMINISTERED, TOLERATED MOST OF MEDS - SEE MAR FOR DETAILS. RESTING QUIETLY AT THIS TIME. CALL LIGHT IN REACH. ISOLATION PRECAUTIONS FOR MRSA CONTINUE
--- NOTE | 2022-01-01 08:19 | NUR ---
rECIEVED REPORT FROM TOW TRUCK DISPATCHER NURSE , PATIENT IS AWKE,ALERT AND OREIENTED . PATIENT WAS ADVISED TO CALL FOR ASSISSTANCE.
--- NOTE | 2022-01-01 12:33 | NUR ---
REPORT GIVEN TO RECIEVING FACILITY CARLI MONROE @ [phone] [phone].
[2022-01-01 12:47] LABS: Influenza A, PCR NEGATIVE (NEGATIVE); Influenza B, PCR NEGATIVE (NEGATIVE); Resp Syncytial Virus, PCR NEGATIVE (NEGATIVE); SARS-Cov-2 (COVID-19) PCR, MMC NEGATIVE (NEGATIVE)
[2022-01-01] MEDS ORDERED: ACET325 PO (14:17)
[2022-01-01] MEDS ORDERED: BENZ100A PO (14:18)
[2022-01-01] MEDS ORDERED: LACT PO (14:19)
[2022-01-01] MEDS ORDERED: MIRT15 PO (14:19)
[2022-01-01] MEDS ORDERED: MELA3 PO (14:19)
[2022-01-01] MEDS ORDERED: ZYVOX IV (14:20)
--- NOTE | 2022-01-01 14:54 | NUR ---
PATIENT IS BEING TRANSFER TO [place] [facility]IA [facility]BUL[facility] SERVICE. PATIENT IN NO ACUTE DISTRESS.
--- NOTE | 2022-01-01 15:32 | NUR ---
pATIENT IS DISCHARGE TO [facility], PATIENT IS AWAKE,ALERT AND ORIENTED TIMES THREE. PATIENT IV REMOVED PER PROTOCOL. PATIENT DAUGHTER MADE AWARE OF PATIENT TRANSFER.
[2022-01-02 12:11] LABS: ANA DIRECT Negative (Negative); ANTIMYELOPEROXIDASE (MPO) ABS <9.0 U/mL (0.0-9.0); ANTIPROTEINASE 3 (PR-3) ABS <3.5 U/mL (0.0-3.5); CYTOPLASMIC (C-ANCA) <1:20 titer (Neg:<1:20); PERINUCLEAR (P-ANCA) <1:20 titer (Neg:<1:20)
== END 2022-01-01 15:10 | DRG 871 ==
LOC: ER 19:16 → ERHOLD 22:33 → MEDS 12-15 01:28
PROVIDERS: Emergency Medicine; Family Medicine; Hospitalist; Internal Medicine Infectious Disease; Student in an Organized Health Care Education/Training Program; ADMIT Family Medicine
DX: A41.02 Sepsis due to Methicillin resistant Staphylococcus aureus (principal); J15.212 Pneumonia due to Methicillin resistant Staphylococcus aureus; J96.01 Acute respiratory failure with hypoxia; E87.2 Acidosis; N17.9 Acute kidney failure, unspecified; R04.2 Hemoptysis; R23.3 Spontaneous ecchymoses; G47.00 Insomnia, unspecified; R11.0 Nausea; E87.6 Hypokalemia; J43.2 Centrilobular emphysema; E83.39 Other disorders of phosphorus metabolism; Z20.822 Contact with and (suspected) exposure to COVID-19; D69.6 Thrombocytopenia, unspecified; K21.9 Gastro-esophageal reflux disease without esophagitis; R65.20 Severe sepsis without septic shock; I25.10 Atherosclerotic heart disease of native coronary artery without angina pectoris; N40.0 Benign prostatic hyperplasia without lower urinary tract symptoms; I25.2 Old myocardial infarction; Z95.5 Presence of coronary angioplasty implant and graft; Z87.891 Personal history of nicotine dependence; Z88.5 Allergy status to narcotic agent; Z79.82 Long term (current) use of aspirin; Z79.899 Other long term (current) drug therapy
CPT/HCPCS: 0202U; 0241U; 36415; 36416; 71045; 71046; 71250; 80048; 80053; 80069; 80202; 83036; 83520; 83605; 83690; 83735; 83880; 84145; 84443; 84484; 85025; 85610; 85730; 86037; 87040; 87070; 87077; 87081; 87147; 87186; 87205; 87389; 87430; 87449; 88108; 88312; 92610; 93005; 93010; 93306; 93312; 93325; 94640; 94667; 94668; 94760; 94762; 96365; 97110; 97112; 97116; 97161; 97165; 97530; 97535; 99284-25; A9270; J0171; J0461; J0696; J1650; J2020; J2250; J2310; J2405; J3010; J3370; J7030; J7040; J7050; J7060

== ENCOUNTER 2022-01-31 14:48 | Inpatient (IN) | payer OTHER ==
[~2022-01-31] VITALS: Ht 182.9 cm; Wt 68.0 kg
[~2022-01-31 14:48] MED LIST changes: +ACET325 PO; +ALBU2.5V5 INH; +ARTIFICIAL TEAR15 M2 BOTHEYES; +BENZ100A PO; -CARBOXYMETHYLCE15 ML BOTHEYES; +LACT PO; +MELA3 PO; +MIRT15 PO; +SPIRIVA RESPIMAT4 G3 INH; +ZYVOX IV
[2022-01-31 16:10] LABS: BASOPHILS ABSOLUTE AUTO 0.04 K/mm3 (0.00-0.23); BASOPHILS PERCENT AUTO 0 % (0-2); EOSINOPHILS ABSOLUTE AUTO 0.19 K/mm3 (0.00-0.68); EOSINOPHILS PERCENT AUTO 2 % (0-6); Hematocrit 33.7 % (37.0-53.0); IMMATURE GRAN ABSOLUTE AUTO 0.07 K/mm3 (0.00-0.10); IMMATURE GRAN PERCENT AUTO 1 % (0-1); LYMPHOCYTES ABSOLUTE AUTO 0.82 K/mm3 (0.84-5.20); LYMPHOCYTES PERCENT AUTO 8 % (21-46); MONOCYTES ABSOLUTE AUTO 1.22 K/mm3 (0.16-1.47); MONOCYTES PERCENT AUTO 12 % (4-13); Mean Corpuscular HGB 29.6 pg (26.0-34.0); Mean Corpuscular HGB Conc 32.6 g/dL (31.5-36.5); Mean Corpuscular Volume 91 fL (80-100); Mean Platelet Volume 10.2 fL (9.1-12.4); NEUTROPHILS ABSOLUTE AUTO 8.07 K/mm3 (1.96-9.15); NEUTROPHILS PERCENT AUTO 78 % (41-73); Platelet Count 219 K/mm3 (150-400); RDW Coefficient Variation 14.1 % (11.7-14.2); RDW Standard Deviation 46.5 fL (35.1-46.3); Red Blood Cell Count 3.72 M/mm3 (4.30-5.90); White Blood Cell Count 10.41 K/mm3 (4.00-11.30)
[2022-01-31 16:21] LABS: Alanine Aminotransfer (ALT/SGP 34 U/L (12-78); Albumin, Blood 2.1 g/dL (3.4-5.0); Albumin/Globulin Ratio 0.4 (0.8-1.8); Alk Phos 160 U/L (50-136); Anion Gap 7 mmol/L (6-16); Aspartate Aminotrans (AST/SGOT 53 U/L (12-37); Bilirubin, Total 0.6 mg/dL (0.1-1.0); Blood Urea Nitrogen 14 mg/dL (8-24); Bun/Creatinine Ratio 12.4 (12.0-20.0); CO2, Blood 25 mmol/L (21-32); Calcium, Blood 8.7 mg/dL (8.5-10.1); Chloride, Blood 103 mmol/L (98-108); Creatinine, Blood 1.13 mg/dL (0.60-1.20); Globulin, Blood 5.2 g/dL (2.2-4.0); Glomerular Filtration Rate >60 (60-); Glucose, Blood 118 mg/dL (70-99); Potassium, Blood 4.4 mmol/L (3.5-5.5); Sodium, Blood 135 mmol/L (136-145); Total Protein, Blood 7.3 g/dL (6.4-8.2)
[2022-02-01 05:24] LABS: BASOPHILS ABSOLUTE AUTO 0.04 K/mm3 (0.00-0.23); BASOPHILS PERCENT AUTO 1 % (0-2); EOSINOPHILS ABSOLUTE AUTO 0.62 K/mm3 (0.00-0.68); EOSINOPHILS PERCENT AUTO 7 % (0-6); Hematocrit 32.1 % (37.0-53.0); Hemoglobin 10.2 g/dL (13.5-17.5); IMMATURE GRAN ABSOLUTE AUTO 0.06 K/mm3 (0.00-0.10); IMMATURE GRAN PERCENT AUTO 1 % (0-1); LYMPHOCYTES ABSOLUTE AUTO 0.95 K/mm3 (0.84-5.20); LYMPHOCYTES PERCENT AUTO 11 % (21-46); MONOCYTES ABSOLUTE AUTO 1.24 K/mm3 (0.16-1.47); MONOCYTES PERCENT AUTO 14 % (4-13); Mean Corpuscular HGB 29.1 pg (26.0-34.0); Mean Corpuscular HGB Conc 31.8 g/dL (31.5-36.5); Mean Corpuscular Volume 92 fL (80-100); Mean Platelet Volume 9.5 fL (9.1-12.4); NEUTROPHILS PERCENT AUTO 66 % (41-73); Platelet Count 204 K/mm3 (150-400); RDW Coefficient Variation 14.1 % (11.7-14.2); RDW Standard Deviation 47.1 fL (35.1-46.3); Red Blood Cell Count 3.51 M/mm3 (4.30-5.90); White Blood Cell Count 8.61 K/mm3 (4.00-11.30)
[2022-02-01 05:58] LABS: Alanine Aminotransfer (ALT/SGP 31 U/L (12-78); Albumin/Globulin Ratio 0.5 (0.8-1.8); Alk Phos 143 U/L (50-136); Anion Gap 7 mmol/L (6-16); Aspartate Aminotrans (AST/SGOT 29 U/L (12-37); Bilirubin, Total 0.4 mg/dL (0.1-1.0); Blood Urea Nitrogen 11 mg/dL (8-24); Bun/Creatinine Ratio 9.4 (12.0-20.0); CO2, Blood 25 mmol/L (21-32); Calcium, Blood 8.6 mg/dL (8.5-10.1); Chloride, Blood 106 mmol/L (98-108); Creatinine, Blood 1.17 mg/dL (0.60-1.20); Globulin, Blood 4.4 g/dL (2.2-4.0); Glomerular Filtration Rate >60 (60-); Glucose, Blood 102 mg/dL (70-99); Potassium, Blood 3.5 mmol/L (3.5-5.5); Sodium, Blood 138 mmol/L (136-145); Total Protein, Blood 6.4 g/dL (6.4-8.2)
[2022-02-01 08:15] LABS: International Normalized Ratio 1.11; Prothrombin Time Results 11.6 Sec (9.7-11.5)
[2022-02-01 08:35] LABS: Influenza A, PCR NEGATIVE (NEGATIVE); Influenza B, PCR NEGATIVE (NEGATIVE); Resp Syncytial Virus, PCR NEGATIVE (NEGATIVE); SARS-Cov-2 (COVID-19) PCR, MMC NEGATIVE (NEGATIVE)
--- NOTE | 2022-02-01 11:35 | NUR ---
TO RADIOLOGY VIA WHEELCHAIR
--- NOTE | 2022-02-01 12:25 | NUR ---
1210 RETURNED TO ROOM VIA [place]. PT TELLS ME HE PASSED OUT AFTER PROCEDURE. PT STATES HE HAS PASSED OUT BEFORE DURING OR AFTER PROCEDURE DUE TO "NERVES". PT DENIES SOB OR DIZZINESS SAID HE WOULD JUST LIKE TO REST IN BED. BANDAID DRY AND INTACT TO LEFT POSTERIOR CHEST. LUNGS SLIGHTLY DIMINISHED LEFT SIDE
[2022-02-01 12:48] LABS: Automated BF RBC Count 0.009 M/mm3 (0-0); Automated BF WBC Count 1.175 K/mm3 (0-999); Body Fluid WBC Count 1175 /mm3 (0-999); RBC Count, Body Fluid 9000 /mm3 (0-0)
[2022-02-01 13:13] LABS: Albumin, Body Fluid 1.8 g/dL
[2022-02-01 13:16] LABS: pH, Body Fluid 7.5
[2022-02-01 13:22] LABS: Protein, Body Fluid 4.4 g/dL
[2022-02-01 13:34] LABS: Appearance, Body Fluid Hazy (Clear); Color, Body Fluid Amber (None-Yellow); Total Cell Count, Body Fluid 100
--- NOTE | 2022-02-01 17:25 | NUR ---
PT DENIES PAIN OR SOB. SLEPT AFTER RETURNED TO ROOM FROM [facility], PT STATES HE HAS PASSED OUT BEFORE AFTER MEDICAL PROCEDURES FROM "NERVES" BANDAID IN PLACE AT [facility] SITE DRY AND INTACT
--- NOTE | 2022-02-02 03:21 | NUR ---
SHIFT SUMMARY: A&OX4, EXPRESSED FRUSTRATION WITH ONGOING "LUNG PROBLEMS", REMAINS IN 2L02, LCTA DIMINISHED ON THE LEFT, DYSPNEA ON EXERTION, EXPRESSES GENERAL WEAKNESS AND PAIN. TREATED PER EMAR. TELE=NSR 70S. NO SIGNIFICANT EVENTS OVERNIGHT.
--- NOTE | 2022-02-02 16:07 | NUR ---
Patient was alert and orient, He complained of pain right away this morning. He was given prn Tylenol for his pain along with his morning meds. He also had a CT this morning. His appetite was fair for his meals. Patient stayed in the bed throughout the shift. When asked to get up in the chair, he stated, "It hurts on my left shoulder and left side to be getting up" This RN did not push him to get up. He wanted to be boosted and eat in bed. Patient was able to express his needs. Continue to monitor
--- NOTE | 2022-02-03 05:55 | NUR ---
SHIFT SUMMARY: NO ACUTE CHANGES OR SIGNIFICANT EVENTS OVERNIGHT. PATIENT WAS A LITTLE APPREHESIVE TOWARDS IVABX THERAPY. EDUCATION AND RATIONALE PROVIDED AND PATIENT COMPLIED WITH ADMINISTRATION. HE INQUIRED ABOUT GETTING A PICC LINE STATING "THE ABX ARE SO HARSH ON MY VEINS AND THE ALWAYS GO BAD" EDUCATED PATIENT ON INDICATION FOR PICC LINE AND POTENTIAL RISKS. PIV IN LAC WAS LEAKING AND THEREFORE REMOVED, ABX INFUSED THROUGH RFA PIV WITHOUT ISSUE.
[2022-02-03 20:29] LABS: Vancomycin, Trough 11.1 ug/mL (5.0-10.0)
--- NOTE | 2022-02-04 03:36 | NUR ---
SHIFT SUMMARY PATIENT HAD NO ACUTE CHANGES OBSERVED. AXOX 4 AND SBA W/FWW TO BSC. PIV REMAINS INTACT. IV ABXS INFUSED. ON 3L O2 NC. USES URINAL AT BEDSIDE. EDGE SETTER REPORTS NSR 77 W/BIGEMINAL PVCS DOWN TO 46. VSS/AFEBRILE. DENIES PAIN, SOB, AND N/V. COOPERATIVE WITH CARE. CALL LIGHT IN REACH. BED IN LOWEST POSITION. WILL CONTINUE TO MONITOR UNTIL DAY SHIFT NURSE ASSUMES CARE.
--- NOTE | 2022-02-04 18:13 | NUR ---
Patient was alert and orient, he will be discharged to [facility] tomorrow. Patient stayed in bed but had plenty of visitors today. He was pleasant and in good spirits. He took his medications and had complaint of pain and did recv prn Tylenol with his morning meds. Patient had no other complaints. Cont to monitor
--- NOTE | 2022-02-05 04:20 | NUR ---
SHIFT SUMMARY: NO SIGINICANT EVENTS ON NOC. [facility].
[2022-02-05 10:13] LABS: BASOPHILS ABSOLUTE AUTO 0.09 K/mm3 (0.00-0.23); BASOPHILS PERCENT AUTO 1 % (0-2); EOSINOPHILS ABSOLUTE AUTO 0.54 K/mm3 (0.00-0.68); EOSINOPHILS PERCENT AUTO 5 % (0-6); Hematocrit 37.5 % (37.0-53.0); Hemoglobin 11.8 g/dL (13.5-17.5); IMMATURE GRAN ABSOLUTE AUTO 0.12 K/mm3 (0.00-0.10); IMMATURE GRAN PERCENT AUTO 1 % (0-1); LYMPHOCYTES ABSOLUTE AUTO 1.49 K/mm3 (0.84-5.20); LYMPHOCYTES PERCENT AUTO 15 % (21-46); MONOCYTES ABSOLUTE AUTO 0.88 K/mm3 (0.16-1.47); MONOCYTES PERCENT AUTO 9 % (4-13); Mean Corpuscular HGB 29.1 pg (26.0-34.0); Mean Corpuscular HGB Conc 31.5 g/dL (31.5-36.5); Mean Corpuscular Volume 93 fL (80-100); Mean Platelet Volume 9.3 fL (9.1-12.4); NEUTROPHILS ABSOLUTE AUTO 7.06 K/mm3 (1.96-9.15); NEUTROPHILS PERCENT AUTO 69 % (41-73); Platelet Count 187 K/mm3 (150-400); RDW Coefficient Variation 14.2 % (11.7-14.2); RDW Standard Deviation 47.6 fL (35.1-46.3); Red Blood Cell Count 4.05 M/mm3 (4.30-5.90); White Blood Cell Count 10.18 K/mm3 (4.00-11.30)
[2022-02-05 10:34] LABS: Alanine Aminotransfer (ALT/SGP 32 U/L (12-78); Albumin/Globulin Ratio 0.4 (0.8-1.8); Alk Phos 165 U/L (50-136); Anion Gap 5 mmol/L (6-16); Aspartate Aminotrans (AST/SGOT 25 U/L (12-37); Bilirubin, Total 0.2 mg/dL (0.1-1.0); Blood Urea Nitrogen 13 mg/dL (8-24); Bun/Creatinine Ratio 11.5 (12.0-20.0); CO2, Blood 26 mmol/L (21-32); Calcium, Blood 8.9 mg/dL (8.5-10.1); Chloride, Blood 108 mmol/L (98-108); Creatinine, Blood 1.13 mg/dL (0.60-1.20); Globulin, Blood 4.6 g/dL (2.2-4.0); Glomerular Filtration Rate >60 (60-); Glucose, Blood 141 mg/dL (70-99); Potassium, Blood 3.6 mmol/L (3.5-5.5); Sodium, Blood 139 mmol/L (136-145); Total Protein, Blood 6.6 g/dL (6.4-8.2)
--- NOTE | 2022-02-05 17:58 | NUR ---
PATIENT ALERT OX4 UPON ARRIVAL. MEDS TAKEN WHOLE WITH WATER. PATIENT COMPLAINED OF SOB AND WAS PUT ON 2 LITERS OF OXYGEN WHICH IS NORMALLY WHAT HE IS ON. MD ORDERED CHEST XRAY FOR PATIENT. PULMONOLOGY REVIEWED PATIENT CASE AND STATED THAT THEY SEE NO REASON PATIENT CAN'T BE DISCHARGED. PATIENT RECEIVED CARE AT THE [place] BUT BECAUSE HE EXPEREINCED PNEUMONIA HAD TO COME TO [facility]. EFM ATTENDING MD STILL NEEDS TO REVIEW INFORMATION ON PATIENT TO APPROVE AND INITIATE DISCHARGE. PATIENT STABLE ON TELE PVC'S WITH SINUS RYTHEM AT 82, CONT PULSE OXIMETRY ORDERED BUT INACCURATE BECAUSE PATIENTS PULSE IS HIGHER AND STABLE THAN PULSE OX IS READING.
--- NOTE | 2022-02-06 05:14 | NUR ---
SHIFT SUMMARY PT IS A 71 Y/O MALE, ADMITTED FOR ACUTE RESPIRATORY FAILURE R/T PNA. HE IS A&O X 4, 1-2PA TO THE BSC. CURRENTLY ON 2L O2 VIA NC, SATTING > 90%. VITAL SIGNS STABLE. TELE SHOWED NSR @ 80S. NO C/O ACUTE PAIN OR NAUSEA. MILD DYSPNEA WITH EXERTION NOTED. NO OTHER ACUTE CHANGES IN PT CONDITION NOTED. WILL CONTINUE TO MONITOR AND TREAT PER EMAR UNTIL HAND OFF TO DAY SHIFT RN.
[2022-02-06] MEDS ORDERED: CLOP75 PO (11:43)
[2022-02-06] MEDS ORDERED: MELA3 PO (11:43)
[2022-02-06] MEDS ORDERED: OMEP20ER PO (11:51)
[2022-02-06] MEDS ORDERED: MIRT15 PO (11:51)
[2022-02-06] MEDS ORDERED: NITR.4SL SL (11:51)
[2022-02-06] MEDS ORDERED: Flomax0.4 MG PO (11:52)
[2022-02-06] MEDS ORDERED: CEFD300 PO (11:56)
[2022-02-06 12:02] LABS: Influenza A, PCR NEGATIVE (NEGATIVE); Influenza B, PCR NEGATIVE (NEGATIVE); Resp Syncytial Virus, PCR NEGATIVE (NEGATIVE); SARS-Cov-2 (COVID-19) PCR, MMC NEGATIVE (NEGATIVE)
--- NOTE | 2022-02-06 13:41 | NUR ---
PATIENT ALERT AND ORIENTED UPON ARRIVAL. PATIENT ON 2 LITERS OF OXYGEN. [facility] PULMONOLOGY AND PATIENTS MD BOTH CLEARED HIM FOR DISCHAGE. REPORT GIVEN TO NATHANIEL AT THE [facility]. TRANSPORT ARRIVED AROUND 1PM TO TAKE THE PATIENT.
--- NOTE | 2022-02-06 16:34 | NUR ---
Per Dr. Nunez discharge appropriate. Patient does not oppose discharge. Patient is discharged back to [facility]. Coordinated discharge with [facility] Liaison Carmen. Updated notes/assessments/discharge orders faxed to [phone] Date of discharge: 02/06/2022 Date of admission: 02/01/2022 Provisional diagnosis at time of admission: Acute respiratory failure Final Diagnosis at time of discharge: Acute respiratory failure Transportation provided by: [facility] transportation services Location/Residence: [address] [place] [address] DME Ordered: Oxygen ordered by [facility] for transport Follow-ups needed: [facility] KARLIE will contact patient to schedule hospital follow-up visit if needed. [facility] receives care at the [facility]. Provider/PCP: TRINA Gaitan When: patient scheduled on 01/31/22 Specialty: N/A Confirmed numbers: Patient [phone] (will need to contact [facility] Carmen [phone] ext [phone]) Comment: None; patient resides at [facility].
== END 2022-02-06 13:40 | DRG 189 ==
LOC: ER 14:48 → MEDS 21:25
PROVIDERS: Emergency Medicine; Internal Medicine; ADMIT Internal Medicine
PROC: 0W9B30Z Drainage of Left Pleural Cavity with Drainage Device, Percutaneous Approach (ICD-10-PCS; principal; 2022-02-01)
DX: J96.01 Acute respiratory failure with hypoxia (principal); J90 Pleural effusion, not elsewhere classified; Z20.822 Contact with and (suspected) exposure to COVID-19; Z28.21 Immunization not carried out because of patient refusal; J43.9 Emphysema, unspecified; I10 Essential (primary) hypertension; G47.00 Insomnia, unspecified; N40.0 Benign prostatic hyperplasia without lower urinary tract symptoms; E78.00 Pure hypercholesterolemia, unspecified; I25.10 Atherosclerotic heart disease of native coronary artery without angina pectoris; I25.2 Old myocardial infarction; Z86.14 Personal history of Methicillin resistant Staphylococcus aureus infection; Z95.5 Presence of coronary angioplasty implant and graft; Z87.01 Personal history of pneumonia (recurrent); Z87.442 Personal history of urinary calculi; Z87.891 Personal history of nicotine dependence; Z88.5 Allergy status to narcotic agent; Z79.82 Long term (current) use of aspirin; Z79.899 Other long term (current) drug therapy
CPT/HCPCS: 0241U; 32555; 36415; 71045; 71260; 80053; 80202; 82042; 83986; 84157; 85025; 85610; 85730; 87070; 87205; 88108; 88305; 89051; 94640; 94760; 94762; 99285; A9270; J0692; J3370; J7050; Q9967